=== PATIENT | female | born 1965 | race Caucasian/White ===

== ENCOUNTER → 2016-08-13 | Outpatient (CLI) | payer OTHER ==
[2016-08-13 14:37] LABS: EKG EKG PERFORMED
--- NOTE | 2016-08-13 14:59 | XR ---
EXAMINATION TYPE: XR chest 2V DATE OF EXAM: 08/13/2016 COMPARISON: Chest x-ray June 22, 2013. HISTORY: Presurgical study. TECHNIQUE: Frontal and lateral views of the chest are obtained. FINDINGS: There is no focal air space opacity, pleural effusion, or pneumothorax seen. The cardiac silhouette size is within normal limits. The osseous structures are intact. IMPRESSION: No acute cardiopulmonary process. No significant change from prior.
[2016-08-13 15:09] LABS: CH 33.8; HCT 45.6 % (34.0-46.0); HDW 2.36; HGB 15.3 gm/dL (11.4-16.0); MCH 33.6 pg (25.0-35.0); MCHC 33.7 g/dL (31.0-37.0); MCV 99.7 fL (80.0-100.0); Mean Platelet Volume 7.4; RBC 4.57 m/uL (3.80-5.40); RDW 12.7 % (11.5-15.5); WBC 8.5 k/uL (3.8-10.6)
[2016-08-13 15:11] LABS: ALT 21 U/L (9-52); AST 17 U/L (14-36); Alkaline Phosphatase 81 U/L (38-126); Anion Gap 11 mmol/L; Blood Urea Nitrogen 20 mg/dL (7-17); Calcium 9.8 mg/dL (8.4-10.2); Carbon Dioxide 23 mmol/L (22-30); Chloride 108 mmol/L (98-107); Glucose 81 mg/dL (74-99); Non-African American GFR(MDRD) 59 (>60 ml/min/1.73 sqM); Potassium 4.5 mmol/L (3.5-5.1); Sodium 142 mmol/L (137-145); Total Bilirubin 0.5 mg/dL (0.2-1.3); Total Protein 7.6 g/dL (6.3-8.2)
[2016-08-13 15:12] LABS: Partial Thromboplastin Time 22.1 sec (22.0-30.0)
== END | disposition home or self-care (01) ==
LOC: LABWHC1 14:19
PROVIDERS: ATTEND Neurological Surgery
DX: Z01.810 Encounter for preprocedural cardiovascular examination (principal); Z01.812 Encounter for preprocedural laboratory examination; S13.1 Subluxation and dislocation of cervical vertebrae
CPT/HCPCS: 36415; 71020; 80053; 85027; 85610; 85730; 93005

== ENCOUNTER → 2016-11-07 | Outpatient (CLI) | payer OTHER | END | disposition home or self-care (01) | LOC: RADMRIMAIN 14:58 | PROVIDERS: ATTEND Neurological Surgery | DX: Z53.9 Procedure and treatment not carried out, unspecified reason (principal) ==

== ENCOUNTER 2017-08-06 14:32 | Observation (INO) | payer OTHER ==
[2017-08-06] MEDS ORDERED: SODIUM CHLORIDE 0.9% 1,000 ML IV ONE (15:00)
--- NOTE | 2017-08-06 15:09 | ED ---
Chest Pain HPI - General Chief Complaint: Chest Pain Stated Complaint: CHEST PRESSURE, BLURRY VISION, DIZZINESS Time Seen by Provider: 08/06/17 14:50 Source: patient Mode of arrival: wheelchair Limitations: no limitations - History of Present Illness Initial Comments: This is a 52-year-old female who presents emergency department for mostly complaints of chest pressure. She states it started around 11 AM she states that she also has some associated blurred vision and some left arm tingling and numbness. She states that she also feels like she's got some weakness in the left upper extremity. Denies any difficult he was speech or swallowing. No lower Chevys swelling. She states that she recently got bit by one of her chickens and presented to an urgent care who put her on Levaquin for cellulitis. She states that initially she seemed like she was improving however then woke up this morning and noticed more swelling and redness in her left lower extremity. She was concerned that infection might be causing her discomfort. She does have a history of anxiety however states that she does not typically get the symptoms with her anxiety. She also has history of TIA. She denies any cough or shortness of breath. No abdominal pain. No nausea, vomiting, or diarrhea. No other acute complaints. - Related Data Home Medications Medication Instructions Recorded Confirmed ARIPiprazole [Abilify] 5 mg PO DAILY 08/06/17 08/06/17 Albuterol Inhaler [Ventolin Hfa 2 puff INHALATION RT-Q4H PRN 08/06/17 08/06/17 Inhaler] Aspirin EC [Ecotrin Low Dose] 81 mg PO HS 08/06/17 08/06/17 Atorvastatin [Lipitor] 40 mg PO 08/06/17 08/06/17 DULoxetine HCL [Cymbalta] 30 mg PO DAILY 08/06/17 08/06/17 Divalproex [Depakote] 1,000 mg PO QAM 08/06/17 08/06/17 Divalproex [Depakote] 500 mg PO HS 08/06/17 08/06/17 Hydrochlorothiazide 12.5 mg PO 08/06/17 08/06/17 Hydrocodone/Acetaminophen [[place] 1 tab PO Q6H PRN 08/06/17 08/06/17 10-325] Levofloxacin [Levaquin] 500 mg PO DAILY 08/06/17 08/06/17 Lisinopril 40 mg PO DAILY 08/06/17 08/06/17 Loratadine [Claritin] 10 mg PO DAILY 08/06/17 08/06/17 Meloxicam 15 mg PO DAILY 08/06/17 08/06/17 Naloxone HCl [Narcan] 1 spray NASAL ONCE PRN 08/06/17 08/06/17 Pregabalin [Lyrica] 75 mg PO BID 08/06/17 08/06/17 Ranitidine HCl 150 mg PO DAILY 08/06/17 08/06/17 Varenicline Tartrate [Chantix 1 mg PO BID 08/06/17 08/06/17 Continuing Pack] amLODIPine BESYLATE [Norvasc] 10 mg PO HS 08/06/17 08/06/17 buPROPion XL [Wellbutrin Xl] 150 mg PO DAILY 08/06/17 08/06/17 rOPINIRole HCL [Requip] 4 mg PO HS 08/06/17 08/06/17 Allergies Allergy/AdvReac Type Severity Reaction Status Date / Time codeine Allergy Unknown Verified 08/06/17 15:30 Review of Systems ROS Statement: Those systems with pertinent positive or pertinent negative responses have been documented in the HPI. ROS Other: All systems not noted in ROS Statement are negative. EKG Findings - EKG Comments: EKG Findings:: EKG showing normal sinus rhythm with a rate of 80. There is no abnormal ST segment changes or T-wave inversions. QTC is 445. Other intervals are normal. No ectopy. Past Medical History Past Medical History: Hypertension Additional Past Medical History / Comment(s): PKD History of Any Multi-Drug Resistant Organisms: None Reported Past Surgical History: Section, Orthopedic Surgery Past Psychological History: Bipolar, Depression Smoking Status: Current every day smoker Past Alcohol Use History: Occasional Past Drug Use History: None Reported General Exam - General Exam Comments Initial Comments: Constitutional: Awake alert Appears comfortable, appears anxious Head: Normocephalic atraumatic Eyes: no conjunctival injection No scleral icterus EOMI, pupils 4 mm reactive bilaterally Neck: No JVD Supple Heart: Regular rate rhythm normal S1-S2 no murmurs Lungs: Clear to auscultation bilaterally No wheezing No rales Abdomen: Soft nondistended nontender Extremities: Non edematous DP pulses intact Radial pulses intact Neuro: A&Ox3, cranial nerves II through XII are grossly intact, 5-5 strength in upper and lower extremities bilaterally, the patient is able to hold up both of her arms for 10 seconds however does state that she feels weakness in the left arm. Question effort on examination, able hold of bilateral lower extremities for 5 seconds, sensation intact to light touch, good senior integration architect strength and flexion and extension of upper extremity bilaterally No focal neurologic deficits Psych: Appropriate mood and affect Limitations: no limitations Course Vital Signs 08/06/17 08/06/17 08/06/17 14:42 15:00 16:45 Temperature 97.7 F Pulse Rate 91 84 89 Respiratory 16 20 20 Rate Blood Pressure 93/62 105/56 96/54 O2 Sat by Pulse 96 96 99 Oximetry - Reevaluation(s) Reevaluation #1: 08/06/17 16:22 Patient reevaluated and states that the weakness and numbness and chest pressure resolved at this time. She states that it keeps coming and going however. Awaiting the rest of her lab results. Chest Pain MDM - MDM This is a 52-year-old female who came to the emergency department for multiple complaints. Her main complaint was chest pressure that radiated into her left arm. She also has some associated left arm numbness, [place], and weakness. This seemed to happen intermittently throughout the day. Chest pain resolved while in the emergency department spontaneously. EKG and troponin were negative. No focal neurologic findings on examination CT of the head was negative. The patient does have persistent swelling in her left lower extremity regardless of being on Levaquin last few days. She was started on vancomycin. Doppler is negative. I like to admit her for further workup of her chest pain and also for cellulitis in her left lower extremity. Dr. Grant except see admission. Disposition Clinical Impression: EFRA (acute kidney injury), Chest pain, Cellulitis, Numbness Disposition: ADMITTED IP TO THIS HOSP Condition: Stable
[2017-08-06 15:29] LABS: Basophils % (A) 0 %; Eosinophils # (A) 0.2 k/uL (0-0.7); Eosinophils % (A) 2 %; HCT 40.3 % (34.0-46.0); HGB 13.6 gm/dL (11.4-16.0); Lymphocytes # (A) 2.7 k/uL (1.0-4.8); Lymphocytes % (A) 24 %; MCH 31.9 pg (25.0-35.0); MCHC 33.7 g/dL (31.0-37.0); MCV 94.8 fL (80.0-100.0); Mean Platelet Volume 7.1; Monocytes # (A) 0.7 k/uL (0-1.0); Monocytes % (A) 7 %; Neutrophils # (A) 7.6 k/uL (1.3-7.7); Neutrophils % (A) 67 %; Platelet Count 240 k/uL (150-450); RBC 4.25 m/uL (3.80-5.40); RDW 13.2 % (11.5-15.5); WBC 11.4 k/uL (3.8-10.6)
[2017-08-06 15:40] LABS: Albumin 4.2 g/dL (3.5-5.0); Calcium 9.6 mg/dL (8.4-10.2); Magnesium 1.9 mg/dL (1.6-2.3); Potassium 4.1 mmol/L (3.5-5.1); Total Bilirubin 0.7 mg/dL (0.2-1.3); Total Protein 6.9 g/dL (6.3-8.2)
[2017-08-06 15:50] LABS: Partial Thromboplastin Time 21.9 sec (22.0-30.0); Prothrombin Time 10.1 sec (9.0-12.0)
--- NOTE | 2017-08-06 16:06 | CT ---
EXAMINATION TYPE: CT brain wo con DATE OF EXAM: 08/06/2017 COMPARISON: 12/27/2012 HISTORY: Dizziness, weakness and blurred vision. CT DLP: [address] of the brain was performed. The ventricles, basal cisterns and sulci overlying the cerebral convexities demonstrate mild enlargem ent. There is no evidence for intracranial hemorrhage or sulcal effacement. There is decreased attenuation about the periventricular white matter and deep white matter of both c erebral hemispheres, compatible with chronic small vessel ischemia. Differential diagnosis does inclu de demyelination. No mass effects are seen.No midline shift. Osseous calvarium is intact. If symptoms persist consider MRI. IMPRESSION: 1. Age related atrophic and chronic small vessel ischemic change without acute intracranial process s een at this time.
[2017-08-06 16:07] LABS: Troponin I <0.012 ng/mL (0.000-0.034)
[2017-08-06] MEDS ORDERED: ASPIRIN 81 MG PO STA (16:18)
[2017-08-06] MEDS ORDERED: HYDROcodone/APAP 7.5-325MG 1 EACH TAB PO ONE (16:47)
[2017-08-06] MEDS ORDERED: VANCOMYCIN IV PER PHARMACY 1 EACH MISC MISCELLANE PRN (16:48)
--- NOTE | 2017-08-06 16:56 | XR ---
EXAMINATION TYPE: XR chest 2V DATE OF EXAM: 08/06/2017 COMPARISON: 08/13/2016 HISTORY: Chest pain TECHNIQUE: Frontal and lateral views of the chest are obtained. FINDINGS: Heart and mediastinum are normal. Lungs are clear. Diaphragm is normal. There are chest le ads. IMPRESSION: Normal chest. No change.
[2017-08-06] MEDS ORDERED: VANCOMYCIN 1,750 MG in SODIUM CHLORIDE 0.9% 250 ML IVPB ONE (17:15)
--- NOTE | 2017-08-06 17:24 | US ---
EXAMINATION TYPE: US venous doppler duplex LE LT DATE OF EXAM: 08/06/2017 5:15 PM COMPARISON: NONE CLINICAL HISTORY: swelling. Left leg pain and swelling x 1 day SIDE PERFORMED: Left TECHNIQUE: The lower extremity deep venous system is examined utilizing real time linear array sonog gracia with graded compression, doppler sonography and color-flow sonography. VESSELS IMAGED: External Iliac Vein (EIV) Common Femoral Vein Deep Femoral Vein Greater Saphenous Vein * Femoral Vein Popliteal Vein Small Saphenous Vein * Proximal Calf Veins (* superficial vessels) Left Leg: Appears negative for DVT IMPRESSION: Negative exam. No sign of deep venous thrombosis in the left leg.
[2017-08-06] MEDS ORDERED: ALBUTEROL NEBULIZED 2.5 MG/3 ML INHALATION PRN (17:30)
[2017-08-06] MEDS ORDERED: KETOROLAC 30 MG/ML 1 ML VIAL IVP STA (17:32)
[2017-08-06] MEDS: SODIUM CHLORIDE 0.9% 1,000 ML IV SCH (17:50)
[2017-08-06] MEDS ORDERED: HYDROCHLOROTHIAZIDE 12.5 MG CAP PO SCH (22:00)
[2017-08-06 22:20] LABS: Creatine Kinase 121 U/L (30-135)
[2017-08-06 22:33] LABS: Creatine Kinase MB 0.7 ng/mL (0.0-2.4); Troponin I <0.012 ng/mL (0.000-0.034)
[2017-08-06] MEDS: HYDROcodone/APAP 10-325MG 1 EACH TAB PO PRN (22:51)
[2017-08-06] MEDS: ATORVASTATIN 40 MG TAB PO SCH (22:52)
[2017-08-06] MEDS: PREGABALIN 75 MG CAP PO SCH (22:53)
[2017-08-06] MEDS: amLODIPine 10 MG TAB PO SCH (22:53)
[2017-08-06] MEDS: VARENICLINE 1 MG TAB PO SCH (22:53)
[2017-08-06] MEDS: DIVALPROEX 500 MG TABLET.DR PO SCH (22:53)
[2017-08-06] MEDS: rOPINIRole HCL 4 MG TABLET PO SCH (22:53)
[2017-08-07] MEDS: SODIUM CHLORIDE 0.9% 1,000 ML IV SCH ×2 (02:39→17:51)
[2017-08-07 03:52] LABS: Cholesterol 175 mg/dL (<200); HDL Cholesterol 40 mg/dL (40-60); LDL Cholesterol,Calculated 100 mg/dL (0-99); Triglycerides 177 mg/dL (<150)
[2017-08-07 04:00] LABS: Creatine Kinase 97 U/L (30-135)
[2017-08-07 04:13] LABS: Creatine Kinase MB 0.6 ng/mL (0.0-2.4); Troponin I <0.012 ng/mL (0.000-0.034)
[2017-08-07] MEDS: HYDROcodone/APAP 10-325MG 1 EACH TAB PO PRN ×3 (08:48→20:03)
[2017-08-07] MEDS ORDERED: VANCOMYCIN 1,500 MG in SODIUM CHLORIDE 0.9% 250 ML IVPB SCH (09:00)
[2017-08-07] MEDS ORDERED: ASPIRIN 325 MG TAB PO SCH (09:00)
[2017-08-07] MEDS ORDERED: MELOXICAM 7.5 MG TAB PO SCH (09:00)
[2017-08-07] MEDS ORDERED: LISINOPRIL 20 MG TAB PO SCH (09:00)
[2017-08-07] MEDS ORDERED: DOBUTamine DRIP for NUC MED 500 MG in DEXTROSE/WATER 1 250ML.BAG IV ONE (10:19)
[2017-08-07] MEDS ORDERED: ASPIRIN 81 MG PO SCH (11:02)
--- NOTE | 2017-08-07 11:08 | P.CRDCN ---
History of Present Illness History of present illness: Mrs. Rasheed is a pleasant 52-year-old female past medical history significant for hypertension, dyslipidemia, asthma and chronic nicotine dependence. She denies history of coronary artery disease and has never seen a harness maker for any reason. We've been asked to see her in consultation for symptoms of chest pain. She states yesterday while preparing for a garage sale at her home she started with a pressure in her chest in mid-sternal region that radiated to her left should, upper left scapular region and down the left arm. Associated with shortness of breath, dizziness, nausea and extreme diaphoresis. She denies associated palpitations or vomiting. Her symptoms were intermittent all day and seemed to be worse with activity and would improve with rest. She also has cellulitis to left lower extremity after a rooster scratch at home. She came to ED initally and was given a tetanus shot and a dose of IM antibiotics. She has had no further symptoms of chest pain since admission. Telemetry tracings have been unremarkable. EKG reveals sinus mechanism with no acute ST or T-wave abnormalities. Chest x-ray is negative for an acute cardiopulmonary process. Laboratory data reviewed, WBC 11.4, d-dimer 0.48, sodium 139, potassium 4.1, creatinine 1.74, GFR 34, magnesium 1.9, cardiac enzymes negative 3, LDL 100, HDL 40, triglycerides 1-77 and total cholesterol 75. Current cardiac medications include amlodipine 10 mg daily, lisinopril 40 mg daily, hydrochlorothiazide 12.5 mg daily, atorvastatin 40 mg daily and aspirin 81 mg daily. She also takes Requip, Wellbutrin, Chantix, ranitidine, Lyrica, meloxicam, Claritin, [place], Depakote, Cymbalta, Abilify and Ventolin. Review of Systems At the time of my exam: CONSTITUTIONAL: Denies fever. Denies chills. EYES: Denies blurred vision. Denies vision changes. Denies eye pain. EARS, NOSE, MOUTH & THROAT: Denies headache. Denies sore throat. Denies ear pain. CARDIOVASCULAR: Denies chest pain. Denies shortness of breath. Denies orthopnea. Denies PND. Denies palpitations. RESPIRATORY: Denies cough. GASTROINTESTINAL: Denies abdominal pain. Denies diarrhea. Denies constipation. Denies nausea. Denies vomiting. MUSCULOSKELETAL: Denies myalgias. INTEGUMENTARY: Denies pruitis. Denies rash. NEUROLOGIC: Denies numbness. Denies tingling. Denies weakness. PSYCHIATRIC: Denies anxiety. Denies depression. ENDOCRINE: Denies fatigue. Denies weight change. Denies polydipsia. Denies polyurina. GENITOURINARY: Denies burning, hematuria or urgency with micturation. HEMATOLOGIC: Denies history of anemia. Denies bleeding. Past Medical History Past Medical History: Asthma, Chest Pain / Angina, CVA/TIA, Hyperlipidemia, Hypertension, Rheumatoid Arthritis (RA) Additional Past Medical History / Comment(s): migraines,irreg heart beat- skipped beats,tia,seasonal allergies, past anemia took iron supplements, poly cystic ovaries,chronic back pain, vertigo,on depakote for bipolar depression . recently pt had skin on lower leg leg punctured by a chicken- was palced on ab for cellulitis History of Any Multi-Drug Resistant Organisms: None Reported Past Surgical History: Section, Orthopedic Surgery Additional Past Surgical History / Comment(s): x5 c-sections, rt knee arthrocopy , rt knee meniscus repair, lt knee tendone/ligament repair, cervical fusion Past Anesthesia/Blood Transfusion Reactions: No Reported Reaction Additional Past Anesthesia/Blood Transfusion Reaction / Comment(s): never recieved blood Smoking Status: Current every day smoker - Past Family History Mother Family Medical History: Rheumatoid Arthritis (RA) Additional Family Medical History / Comment(s): alcoholic- has since Father Additional Family Medical History / Comment(s): alcoholic Medications and Allergies Home Medications Medication Instructions Recorded Confirmed Type ARIPiprazole [Abilify] 5 mg PO DAILY 08/06/17 08/06/17 History Albuterol Inhaler [Ventolin Hfa 2 puff INHALATION RT-Q4H PRN 08/06/17 08/06/17 History Inhaler] Aspirin EC [Ecotrin Low Dose] 81 mg PO HS 08/06/17 08/06/17 History Atorvastatin [Lipitor] 40 mg PO HS 08/06/17 08/06/17 History DULoxetine HCL [Cymbalta] 30 mg PO DAILY 08/06/17 08/06/17 History Divalproex [Depakote] 1,000 mg PO QA 08/06/17 08/06/17 History Divalproex [Depakote] 500 mg PO HS 08/06/17 08/06/17 History Hydrochlorothiazide 12.5 mg PO HS 08/06/17 08/06/17 History Hydrocodone/Acetaminophen [[place] 1 tab PO Q6H PRN 08/06/17 08/06/17 History 10-325] Levofloxacin [Levaquin] 500 mg PO DAILY 08/06/17 08/06/17 History Lisinopril 40 mg PO DAILY 08/06/17 08/06/17 History Loratadine [Claritin] 10 mg PO DAILY 08/06/17 08/06/17 History Meloxicam 15 mg PO DAILY 08/06/17 08/06/17 History Naloxone HCl [Narcan] 1 spray NASAL ONCE PRN 08/06/17 08/06/17 History Pregabalin [Lyrica] 75 mg PO BID 08/06/17 08/06/17 History Ranitidine HCl 150 mg PO DAILY 08/06/17 08/06/17 History Varenicline Tartrate [Chantix 1 mg PO BID 08/06/17 08/06/17 History Continuing Pack] amLODIPine BESYLATE [Norvasc] 10 mg PO HS 08/06/17 08/06/17 History buPROPion XL [Wellbutrin Xl] 150 mg PO DAILY 08/06/17 08/06/17 History rOPINIRole HCL [Requip] 4 mg PO HS 08/06/17 08/06/17 History Allergies Allergy/AdvReac Type Severity Reaction Status Date / Time codeine Allergy Unknown Verified 08/06/17 22:39 Physical Exam Vitals: Vital Signs Temp Pulse Pulse Resp BP BP Pulse Ox 08/07/17 04:00 98.1 F 66 16 80/53 90 L 08/07/17 03:52 16 08/06/17 23:32 97.9 F 76 16 85/64 92 L 08/06/17 22:58 16 08/06/17 22:25 98.1 F 74 16 126/75 94 L 08/06/17 21:43 98.3 F 88 20 96/56 99 08/06/17 19:32 69 18 116/67 97 08/06/17 19:31 77 19 116/67 98 08/06/17 17:50 126 H 18 110/64 96 08/06/17 16:45 89 20 96/54 99 08/06/17 15:00 84 20 105/56 96 08/06/17 14:42 97.7 F 91 16 93/62 96 Intake and Output 08/06/17 08/07/17 08/07/17 22:59 06:59 14:59 Intake Total 600 Balance 600 Intake: IV 600 Sodium Chloride 0.9% 1, 600 000 ml @ 100 mls/hr IV . Q10H [facility] Rx#:[id number] Other: Voiding Method Toilet Toilet # Voids 2 Blood pressure 111/63 heart rate 64 afebrile maintaining oxygen saturation on room air GENERAL: This is a 52-year-old female in no apparent distress at the time of my examination. HEENT: Head is atraumatic, normocephalic. Pupils are equal, round. Sclerae anicteric. Conjunctivae are clear. Mucous membranes of the mouth are moist. Neck is supple. There is no jugular venous distention. No carotid bruit is heard. LUNGS: Clear to auscultation no wheezes, rales or rhonchi. No chest wall tenderness is noted on palpation or with deep breathing. Diminished bilaterally. HEART: Regular rate and rhythm without murmurs, rubs or gallops. S1 and S2 heard. ABDOMEN: Soft, nontender. Bowel sounds are heard. No organomegaly noted. EXTREMITIES: No calf tenderness noted. Left lower extremity edema, nonpitting. VASCULAR: Radial and dorsalis pedis pulses palpated, no evidence of clubbing. NEUROLOGIC: Patient is awake, alert and oriented x3. Results 08/06/17 15:15 08/06/17 15:15 Cardiac Enzymes 08/06/17 08/06/17 08/06/17 Range/Units 15:15 15:15 21:38 AST 20 (14-36) U/L CK-MB (CK-2) 1.0 0.7 (0.0-2.4) ng/mL Troponin I <0.012 <0.012 (0.000-0.034) ng/mL 08/07/17 Range/Units 03:23 AST (14-36) U/L CK-MB (CK-2) 0.6 (0.0-2.4) ng/mL Troponin I <0.012 (0.000-0.034) ng/mL Coagulation 08/06/17 Range/Units 15:15 PT 10.1 (9.0-12.0) sec APTT 21.9 L (22.0-30.0) sec Lipids 08/07/17 Range/Units 03:23 Triglycerides 177 H (<150) mg/dL Cholesterol 175 (<200) mg/dL HDL Cholesterol 40 (40-60) mg/dL CBC 08/06/17 Range/Units 15:15 WBC 11.4 H (3.8-10.6) k/uL RBC 4.25 (3.80-5.40) m/uL Hgb 13.6 (11.4-16.0) gm/dL Hct 40.3 (34.0-46.0) % Plt Count 240 (150-450) k/uL Comprehensive Metabolic Panel 08/06/17 Range/Units 15:15 Sodium 139 (137-145) mmol/L Potassium 4.1 (3.5-5.1) mmol/L Chloride 102 (98-107) mmol/L Carbon Dioxide 23 (22-30) mmol/L BUN 22 H (7-17) mg/dL Creatinine 1.74 H (0.52-1.04) mg/dL Glucose 74 (74-99) mg/dL Calcium 9.6 (8.4-10.2) mg/dL AST 20 (14-36) U/L ALT 27 (9-52) U/L Alkaline Phosphatase 75 (38-126) U/L Total Protein 6.9 (6.3-8.2) g/dL Albumin 4.2 (3.5-5.0) g/dL Current Medications Generic Name Dose Route Start Last Admin Trade Name Freq PRN Reason Stop Dose Admin Hydrocodone Bitart/Acetaminophen 1 each 08/06/17 17:30 08/06/17 22:51 [place] 10 PO 1 each Q6H PRN Administration Pain Albuterol Sulfate 2.5 mg 08/06/17 17:30 Ventolin Nebulized INHALATION RT-Q4H PRN Shortness Of Breath Amlodipine Besylate 10 mg 08/06/17 22:00 08/06/17 22:53 Norvasc PO 10 mg HS OBDULIO Administration Aripiprazole 5 mg 08/07/17 09:00 Abilify PO DAILY [facility] Aspirin 325 mg 08/07/17 09:00 Aspirin PO DAILY [facility] Atorvastatin Calcium 40 mg 08/06/17 22:00 08/06/17 22:52 Lipitor PO 40 mg HS OBDULIO Administration Bupropion HCl 150 mg 08/07/17 09:00 Wellbutrin Xl PO DAILY [facility] Divalproex Sodium 500 mg 08/06/17 22:00 08/06/17 22:53 Depakote PO 500 mg HS OBDULIO Administration Divalproex Sodium 1,000 mg 08/07/17 09:00 Depakote PO QAM [facility] Duloxetine HCl 30 mg 08/07/17 09:00 Cymbalta PO DAILY [facility] Famotidine 20 mg 08/07/17 09:00 Pepcid PO DAILY [facility] Hydrochlorothiazide 12.5 mg 08/07/17 09:00 Hydrodiuril PO DAILY [facility] Sodium Chloride 1,000 mls @ 100 mls/hr 08/06/17 17:30 08/07/17 02:39 Saline 0.9% IV Not Given .Q10H [facility] Vancomycin HCl 1,500 mg/ 250 mls @ 125 mls/hr 08/07/17 09:00 Sodium Chloride IVPB Q24H [facility] Lisinopril 40 mg 08/07/17 09:00 Zestril PO DAILY [facility] Loratadine 10 mg 08/07/17 09:00 Claritin PO DAILY [facility] Meloxicam 15 mg 08/07/17 09:00 Mobic PO DAILY [facility] Pregabalin 75 mg 08/06/17 22:00 08/06/17 22:53 Lyrica PO 75 mg BID [facility] Administration Ropinirole HCl 4 mg 08/06/17 22:00 08/06/17 22:53 Requip PO 4 mg HS [facility] Administration Varenicline 1 mg 08/06/17 22:00 08/06/17 22:53 Chantix PO 1 mg BID [facility] Administration Intake and Output 08/06/17 08/07/17 08/07/17 22:59 06:59 14:59 Intake Total 600 Balance 600 Intake: IV 600 Sodium Chloride 0.9% 1, 600 000 ml @ 100 mls/hr IV . Q10H [facility] Rx#:[id number] Other: Voiding Method Toilet Toilet # Voids 2 08/06/17 15:15 08/06/17 15:15 Assessment and Plan Assessment: ASSESSMENT 1. Chest pain, atypical. Acute coronary event has ruled out with no EKG evidence of ischemia and normal cardiac enzymes. 2. Hypertension 3. Dyslipidemia 4. Acute kidney injury 5. Cellulitis left lower extremity 6. Chronic nicotine dependence PLAN Obtain 2-D echocardiogram and Doppler study to assess cardiac structure and function. Perform dobutamine stress echocardiogram to assess for stress-induced cardiac ischemia. If this is normal she is stable from a cardiac perspective. If abnormal we will consider coronary angiography. D-dimer has been checked tenderness is negative. Change aspirin to 81 mg daily. Thank you kindly for this consultation. Nurse Practitioner note has been reviewed, I agree with a documented findings and plan of care. Patient was seen and examined.
--- NOTE | 2017-08-07 11:28 | ECHOF ---
Referral Reason:cp MEASUREMENTS -------- HEIGHT: 157.5 cm WEIGHT: 80.3 kg BP: 80/53 RVIDd: 2.6 cm (< 3.3) IVSd: 1.2 cm (0.6 - 1.1) LVIDd: 3.5 cm (3.9 - 5.3) LVPWd: 1.2 cm (0.6 - 1.1) IVSs: 1.6 cm LVIDs: 2.5 cm LVPWs: 1.4 cm LA Diam: 3.1 cm (2.7 - 3.8) LAESV Index (A-L): 27.80 ml/m Ao Diam: 3.0 cm (2.0 - 3.7) AV Cusp: 2.1 cm (1.5 - 2.6) MV EXCURSION: 14.382 mm (> 18.000) MV EF SLOPE: 70 mm/s (70 - 150) EPSS: 0.1 cm MV E Thony: 1.27 m/s MV DecT: 262 ms MV A Thony: 0.95 m/s MV E/A Ratio: 1.33 RAP: 5.00 mmHg RVSP: 26.84 mmHg FINDINGS -------- Sinus rhythm. This was a technically adequate study. The left ventricular size is normal. There is borderline concentric left ventricular hypertrophy. Overall left ventricular systolic function is normal with, an EF between 55 - 60 %. The right ventricle is normal in size. Normal LA size by volume 22+/-6 ml/m2. The right atrium is normal in size. The aortic valve is trileaflet and appears structurally normal. The mitral valve is normal. Mild tricuspid regurgitation present. Right ventricular systolic pressure is normal at < 35 mmHg. Trace/mild (physiologic) pulmonic regurgitation. The aortic root is dilated measuring 3.0cm. Normal inferior vena cava with normal inspiratory collapse consistent with estimated right atrial pre ssure of 5 mmHg. There is no pericardial effusion. CONCLUSIONS -------- 1. Sinus rhythm. 2. This was a technically adequate study. 3. The left ventricular size is normal. 4. There is borderline concentric left ventricular hypertrophy. 5. Overall left ventricular systolic function is normal with, an EF between 55 - 60 %. 6. The right ventricle is normal in size. 7. Normal LA size by volume 22+/-6 ml/m2. 8. The right atrium is normal in size. 9. The aortic valve is trileaflet and appears structurally normal. 10. The mitral valve is normal. 11. Mild tricuspid regurgitation present. 12. Right ventricular systolic pressure is normal at < 35 mmHg. 13. Trace/mild (physiologic) pulmonic regurgitation. 14. The aortic root is dilated measuring 3.0cm. 15. Normal inferior vena cava with normal inspiratory collapse consistent with estimated right atrial pressure of 5 mmHg. 16. There is no pericardial effusion. [place] DISPATCHER: Mohini Baldwin RDCS
[2017-08-07] MEDS ORDERED: ATROPINE SULFATE 0.1 MG/ML 10ML SYRINGE ONE (12:10)
[2017-08-07] MEDS ORDERED: TERBUTALINE FOR EXTRAVASATION 1 MG/ML VIAL SQ STA (12:16)
[2017-08-07] MEDS ORDERED: METOPROLOL TARTRATE 5 MG/5 ML VIAL IVP ONE (12:18)
[2017-08-07] MEDS: LORATADINE 10 MG TAB PO SCH (12:40)
[2017-08-07] MEDS: DULoxetine HCL 30 MG CAPSULE.DR PO SCH (12:40)
[2017-08-07] MEDS: DIVALPROEX 500 MG TABLET.DR PO SCH ×2 (12:40→20:01)
[2017-08-07] MEDS: HYDROCHLOROTHIAZIDE 12.5 MG CAP PO SCH (12:40)
[2017-08-07] MEDS: VARENICLINE 1 MG TAB PO SCH ×2 (12:40→20:01)
[2017-08-07] MEDS: buPROPion XL 150 MG TAB.ER.24H PO SCH (12:40)
[2017-08-07] MEDS: ARIPiprazole 5 MG TAB PO SCH (12:40)
[2017-08-07] MEDS: PREGABALIN 75 MG CAP PO SCH ×2 (12:40→20:01)
[2017-08-07] MEDS: FAMOTIDINE 20 MG TAB PO SCH (12:40)
[2017-08-07] MEDS ORDERED: TERBUTALINE 1 MG/ML VIAL SQ STA (14:05)
--- NOTE | 2017-08-07 16:36 | P.HPIM ---
History of Present Illness This is a pleasant 52 years old female with past medical history of asthma, CVA/ TIA, hyperlipidemia, hypertension, rheumatoid arthritis, migraine, polycystic ovary disease, chronic back pain, vertigo, bipolar disorder on Depakote, who presents because of chest pain which was started of 1 or 2 days duration, central radiating to the left shoulder, patient felt it like a brICk on the chest, was 9/10 in severity.BY The time I saw the patient she was lying in bed sleeping told me her chest pain was significantly better as now 5/10. Associated with nausea, no dyspnea, no change in urine or bowel habits, no fever Also the emergency room there was suspicion of left foot swelling and cellulitis as per patient and it was started on IV vancomycin and IV fluids already, however on the exam looks like very mild swelling over her left foods with small wound in the anterior lower leg, with dried scab, and mildly surrounding erythema and swelling . However I stopped her vancomycin and change it to clindamycin In the ED patient has negative chest x-ray, CT of the head was negative for acute process, venous Doppler of the left lower extremity is negative for DVT Review of Systems CONSTITUTIONAL: No fever, no malaise, no fatigue. HEENT: No recent visual problems or hearing problems. Denied any sore throat. CARDIOVASCULAR: No orthopnea, PND, no palpitations, no syncope. PULMONARY: No shortness of breath, no cough, no hemoptysis. GASTROINTESTINAL: No diarrhea, no nausea, no vomiting, no abdominal pain. Normoactive bowel sounds. NEUROLOGICAL: No headaches, no weakness, no numbness. HEMATOLOGICAL: Denies any bleeding or petechiae. GENITOURINARY: Denies any burning micturition, frequency, or urgency. MUSCULOSKELETAL/RHEUMATOLOGICAL: Denies any joint pain, swelling, or any muscle pain. ENDOCRINE: Denies any polyuria or polydipsia. Past Medical History Past Medical History: Asthma, Chest Pain / Angina, CVA/TIA, Hyperlipidemia, Hypertension, Rheumatoid Arthritis (RA) Additional Past Medical History / Comment(s): migraines,irreg heart beat- skipped beats,tia,seasonal allergies, past anemia took iron supplements, poly cystic ovaries,chronic back pain, vertigo,on depakote for bipolar depression . recently pt had skin on lower leg leg punctured by a chicken- was palced on ab for cellulitis History of Any Multi-Drug Resistant Organisms: None Reported Past Surgical History: Section, Orthopedic Surgery Additional Past Surgical History / Comment(s): x5 c-sections, rt knee arthrocopy , rt knee meniscus repair, lt knee tendone/ligament repair, cervical fusion Past Anesthesia/Blood Transfusion Reactions: No Reported Reaction Additional Past Anesthesia/Blood Transfusion Reaction / Comment(s): never recieved blood Smoking Status: Current every day smoker - Past Family History Mother Family Medical History: Rheumatoid Arthritis (RA) Additional Family Medical History / Comment(s): alcoholic- has since Father Additional Family Medical History / Comment(s): alcoholic Medications and Allergies Home Medications Medication Instructions Recorded Confirmed Type ARIPiprazole [Abilify] 5 mg PO DAILY 08/06/17 08/06/17 History Albuterol Inhaler [Ventolin Hfa 2 puff INHALATION RT-Q4H PRN 08/06/17 08/06/17 History Inhaler] Aspirin EC [Ecotrin Low Dose] 81 mg PO HS 08/06/17 08/06/17 History Atorvastatin [Lipitor] 40 mg PO HS 08/06/17 08/06/17 History DULoxetine HCL [Cymbalta] 30 mg PO DAILY 08/06/17 08/06/17 History Divalproex [Depakote] 1,000 mg PO QA 08/06/17 08/06/17 History Divalproex [Depakote] 500 mg PO HS 08/06/17 08/06/17 History Hydrochlorothiazide 12.5 mg PO HS 08/06/17 08/06/17 History Hydrocodone/Acetaminophen [[place] 1 tab PO Q6H PRN 08/06/17 08/06/17 History 10-325] Levofloxacin [Levaquin] 500 mg PO DAILY 08/06/17 08/06/17 History Lisinopril 40 mg PO DAILY 08/06/17 08/06/17 History Loratadine [Claritin] 10 mg PO DAILY 08/06/17 08/06/17 History Meloxicam 15 mg PO DAILY 08/06/17 08/06/17 History Naloxone HCl [Narcan] 1 spray NASAL ONCE PRN 08/06/17 08/06/17 History Pregabalin [Lyrica] 75 mg PO BID 08/06/17 08/06/17 History Ranitidine HCl 150 mg PO DAILY 08/06/17 08/06/17 History Varenicline Tartrate [Chantix 1 mg PO BID 08/06/17 08/06/17 History Continuing Pack] amLODIPine BESYLATE [Norvasc] 10 mg PO HS 08/06/17 08/06/17 History buPROPion XL [Wellbutrin Xl] 150 mg PO DAILY 08/06/17 08/06/17 History rOPINIRole HCL [Requip] 4 mg PO HS 08/06/17 08/06/17 History Allergies Allergy/AdvReac Type Severity Reaction Status Date / Time codeine Allergy Unknown Verified 08/06/17 22:39 Physical Exam Vitals: Vital Signs Temp Pulse Pulse Resp BP BP BP 08/07/17 15:34 98.4 F 87 18 93/52 08/07/17 12:35 86 18 103/77 08/07/17 07:45 97.9 F 64 18 111/63 08/07/17 04:00 98.1 F 66 16 80/53 08/07/17 03:52 16 08/06/17 23:32 97.9 F 76 16 85/64 08/06/17 22:58 16 08/06/17 22:25 98.1 F 74 16 126/75 08/06/17 21:43 98.3 F 88 20 96/56 08/06/17 19:32 69 18 116/67 08/06/17 19:31 77 19 116/67 08/06/17 17:50 126 H 18 110/64 08/06/17 16:45 89 20 96/54 Pulse Ox 08/07/17 15:34 95 08/07/17 12:35 96 08/07/17 07:45 93 L 08/07/17 04:00 90 L 08/07/17 03:52 08/06/17 23:32 92 L 08/06/17 22:58 08/06/17 22:25 94 L 08/06/17 21:43 99 08/06/17 19:32 97 08/06/17 19:31 98 08/06/17 17:50 96 08/06/17 16:45 99 Intake and Output 08/07/17 08/07/17 08/07/17 06:59 14:59 22:59 Intake Total 600 400 Balance 600 400 Intake: IV 600 Sodium Chloride 0.9% 1, 600 000 ml @ 100 mls/hr IV . Q10H OBDULIO Rx#:[id number] Oral 400 Other: Voiding Method Toilet Toilet # Voids 2 1 Weight 80.286 kg GENERAL: The patient is alert and oriented x3, not in any acute distress. Well developed, well nourished. HEENT: Pupils are round and equally reacting to light. EOMI. No scleral icterus. No conjunctival pallor. Normocephalic, atraumatic. No pharyngeal erythema. No thyromegaly. CARDIOVASCULAR: S1 and S2 present. No murmurs, rubs, or gallops. PULMONARY: Chest is clear to auscultation, no wheezing or crackles. ABDOMEN: Soft, nontender, nondistended, normoactive bowel sounds. No palpable organomegaly. MUSCULOSKELETAL: No joint swelling or deformity. EXTREMITIES: No cyanosis, clubbing, or pedal edema. Left foot is showing mild swelling, there is dried scab on anterior lower leg wound with mildly surrounding erythema and swelling -That the fullness in her left arm probably from IV infiltration, no open wound. No erythema or discoloration, no ecchymosis or blistering NEUROLOGICAL: Gross neurological examination did not reveal any focal deficits. SKIN: No rashes. Results CBC & Chem 7: 08/06/17 15:15 08/06/17 15:15 Labs: Abnormal Lab Results - Last 24 Hours (Table) 08/07/17 Range/Units 03:23 Triglycerides 177 H (<150) mg/dL LDL Cholesterol, Calc 100 H (0-99) mg/dL Thrombosis Risk Factor Assmnt - Choose All That Apply Any of the Below Risk Factors Present?: Yes Each Factor Represents 1 point: Age 41-60 years, Obesity (BMI >25), Swollen legs (current) Other Risk Factors: No Other congenital or acquired thrombophilia - If yes, enter type in comment: No Thrombosis Risk Factor Assessment Total Risk Factor Score: 3 Thrombosis Risk Factor Assessment Level: Moderate Risk Assessment and Plan Plan: -Chest pain syndrome, patient was evaluated by cardiology and cleared for discharge after she had negative stress test. Her d-dimer was negative. Continue with aspirin 81 mg. Echo shows EF 55-60%, patient has 4 runs of V. tach, discussed with the staff to relay the information to the cardiology team -Possible cellulitis of the left lower extremity, patient was already started on vancomycin and as per patient it is significantly improved, discontinue vancomycin start on clindamycin -Infiltration of the IV line with dobutamine, continue with local measures and follow-up -Acute kidney injury with creatinine 1.7, was 1 on 07/2016, continue with IV hydration and follow-up creatinine level, DC NSAIDs, hold lisinopril for now and start her on Norvasc -Leukocytosis, no signs and symptoms of infection, could be reactive versus others. Monitor WBC. No need for antibiotics currently -Hypertension hold lisinopril and start Norvasc in view of her kidney injury -Hyperlipidemia continue with statin DVT prophylaxis is heparin GI prophylaxis Pepcid
[2017-08-07 17:05] LABS: Basophils % (A) 0 %; Eosinophils # (A) 0.2 k/uL (0-0.7); Eosinophils % (A) 2 %; HCT 36.7 % (34.0-46.0); HGB 12.1 gm/dL (11.4-16.0); Lymphocytes # (A) 3.1 k/uL (1.0-4.8); Lymphocytes % (A) 40 %; MCH 31.9 pg (25.0-35.0); MCHC 33.1 g/dL (31.0-37.0); MCV 96.2 fL (80.0-100.0); Mean Platelet Volume 7.1; Monocytes # (A) 0.4 k/uL (0-1.0); Monocytes % (A) 5 %; Neutrophils % (A) 51 %; Platelet Count 207 k/uL (150-450); RBC 3.81 m/uL (3.80-5.40); RDW 13.4 % (11.5-15.5); WBC 7.9 k/uL (3.8-10.6)
[2017-08-07 17:11] LABS: Anion Gap 14 mmol/L; Blood Urea Nitrogen 19 mg/dL (7-17); Calcium 8.5 mg/dL (8.4-10.2); Carbon Dioxide 23 mmol/L (22-30); Chloride 105 mmol/L (98-107); Glucose 95 mg/dL (74-99); Potassium 3.3 mmol/L (3.5-5.1); Sodium 142 mmol/L (137-145)
[2017-08-07] MEDS ORDERED: POTASSIUM CHLORIDE ER 20 MEQ TAB.ER PO STA (17:23)
[2017-08-07] MEDS: CLINDAMYCIN 600 MG in DEXTROSE 5% IN WATER 50 ML IVPB SCH ×2 (17:51)
[2017-08-07] MEDS: ATORVASTATIN 40 MG TAB PO SCH (20:01)
[2017-08-07] MEDS: rOPINIRole HCL 4 MG TABLET PO SCH (20:01)
[2017-08-07] MEDS: amLODIPine 10 MG TAB PO SCH (20:06)
[2017-08-08] MEDS: CLINDAMYCIN 600 MG in DEXTROSE 5% IN WATER 50 ML IVPB SCH ×4 (03:06→09:00)
[2017-08-08] MEDS: HYDROcodone/APAP 10-325MG 1 EACH TAB PO PRN (03:06)
[2017-08-08 06:39] LABS: Basophils % (A) 1 %; Eosinophils # (A) 0.2 k/uL (0-0.7); Eosinophils % (A) 4 %; HCT 35.9 % (34.0-46.0); HGB 11.9 gm/dL (11.4-16.0); Lymphocytes # (A) 3.6 k/uL (1.0-4.8); Lymphocytes % (A) 54 %; MCH 32.1 pg (25.0-35.0); MCHC 33.3 g/dL (31.0-37.0); MCV 96.4 fL (80.0-100.0); Mean Platelet Volume 6.9; Monocytes # (A) 0.3 k/uL (0-1.0); Monocytes % (A) 4 %; Neutrophils # (A) 2.4 k/uL (1.3-7.7); Neutrophils % (A) 36 %; Platelet Count 199 k/uL (150-450); RBC 3.72 m/uL (3.80-5.40); RDW 13.4 % (11.5-15.5); WBC 6.6 k/uL (3.8-10.6)
[2017-08-08 06:55] LABS: Anion Gap 9 mmol/L; Blood Urea Nitrogen 20 mg/dL (7-17); Calcium 8.4 mg/dL (8.4-10.2); Carbon Dioxide 24 mmol/L (22-30); Chloride 108 mmol/L (98-107); Glucose 92 mg/dL (74-99); Potassium 4.5 mmol/L (3.5-5.1); Sodium 141 mmol/L (137-145)
[2017-08-08] MEDS: PREGABALIN 75 MG CAP PO SCH (09:01)
[2017-08-08] MEDS: VARENICLINE 1 MG TAB PO SCH (09:01)
[2017-08-08] MEDS: LORATADINE 10 MG TAB PO SCH (09:01)
[2017-08-08] MEDS: ARIPiprazole 5 MG TAB PO SCH (09:01)
[2017-08-08] MEDS: buPROPion XL 150 MG TAB.ER.24H PO SCH (09:01)
[2017-08-08] MEDS: DULoxetine HCL 30 MG CAPSULE.DR PO SCH (09:01)
[2017-08-08] MEDS: FAMOTIDINE 20 MG TAB PO SCH (09:01)
[2017-08-08] MEDS: DIVALPROEX 500 MG TABLET.DR PO SCH (09:02)
[2017-08-08 09:18] VITALS: RESP 18
--- NOTE | 2017-08-08 09:28 | EST ---
EXERCISE STRESS DATE OF SERVICE: August 06, 2017 AGE: 52 SEX: Female HT: 5'2" WT: 177 PROTOCOL: Dobutamine Stress Echo STAGE: IV DURATION OF EXERCISE: 12:20 minutes HEART RATE REST: 74 BLOOD PRESSURE REST: 119/62 MAXIMUM HEART RATE ACHIEVED: 149. MAXIMUM BLOOD PRESSURE: 120/43 85% MPHR: 144 100% MPHR: 169 METS: INDICATIONS: Chest pain. CLINICAL INFORMATION: Chest discomfort. STRESS DATA: Pretesting physical examination showed a heart rate of 74, pressure is 119/62 mmHg. Baseline EKG showed sinus mechanism. Dobutamine infusion at a dose of 10 mcg/kg per minute was initiated and increased to 40 mics per minute per protocol. With dobutamine the patient achieved a max heart rate of 149 which is about 88% of maximum predicted heart rate. Maximum blood pressure was 120/45 mmHg. Clinically, the patient developed chest discomfort during dobutamine infusion. The EKG showed about [address]- segment depression as well. ECHOCARDIOGRAM IMAGES: On echocardiogram images from parasternal long axis view, parasternal short axis view, apical 4 chamber and apical 2 chamber view were obtained as a baseline images, at low dose dobutamine infusion, at peak heart rate, as well as on recovery and the echocardiogram images revealed no evidence of wall motion abnormalities concerning for ischemia. CONCLUSION: 1. Mild EKG changes in response to dobutamine at the peak heart rate. 2. Chest discomfort in response to dobutamine as well. 3. No evidence of any wall motion abnormalities by echocardiogram in response to dobutamine. MMODL / IJN: [id number] /
[2017-08-08] MEDS ORDERED: METOPROLOL SUCCINATE (ER) 25 MG TAB.ER.24H PO SCH (09:30)
--- NOTE | 2017-08-08 09:49 | PN ---
PROGRESS NOTE 52-year-old lady is admitted to hospital with chest pain and ruled out for myocardial infarction. She was seen by my associate, Dr. Nakia Terrazas yesterday and underwent a dobutamine echo. We are told that her dobutamine echo was negative. I do not have the results with me. Echocardiogram shows normal LV function. She apparently had the dobutamine has extravasated yesterday, but that area had also improved. The patient had a 4-beat run of nonsustained VT, but had remained stable since. She is currently on statins, aspirin, Norvasc, HydroDIURIL, I will add a small dose of Toprol-XL to her and stop the Norvasc given the low blood pressure. I will ambulate her and if she is feeling well, we may be able to discharge her home. MMFRANCESL / IJN: [id number] /
[2017-08-08] MEDS: HYDROCHLOROTHIAZIDE 12.5 MG CAP PO SCH (12:03)
[2017-08-08 12:06] VITALS: BP 96/55; PULSE 82; TEMP 98.6
--- NOTE | 2017-08-08 12:27 | P.DS ---
Providers Date of admission: 08/06/17 17:28 Attending physician: Dot Grant Consults: 08/06/17 17:28 Consult Physician Urgent Consulting Provider: [facility] Consult Reason/Comments: Chest Pain Do you want consulting provider notified?: Yes [facility] care physician[facility] Course: Ms. Rasheed is a pleasant 52 years old female with past medical history of asthma , CVA/TIA, hyperlipidemia, hypertension, rheumatoid arthritis, migraine, polycystic ovary disease, chronic back pain, vertigo, bipolar disorder on Depakote, who presents because of chest pain which was started of 1 or 2 days duration, central radiating to the left shoulder, patient felt it like a brick on the chest, was 9/10 in severity.Not associated with nausea, no dyspnea, no change in urine or bowel habits, no fever Also the emergency room there was suspicion of left foot swelling and cellulitis as per patient and it was started on IV vancomycin and IV fluids already, however on the exam looked very mild swelling over her left foods with small wound in the anterior lower leg, with dried scab, and mildly surrounding erythema and swelling . So stopped her vancomycin and change it to clindamycin yesterday. In the ED patient has negative chest x-ray, CT of the head was negative for acute process, venous Doppler of the left lower extremity is negative for DVT. Patient had a dobutamine stress echo done yesterday that was negative. EF was within normal limits. But she had the dobutamine that was extravasated in her left arm, but improved today. She has been cleared by cardiology services to be discharged home. Patient's blood pressure has been running low, she was not given any of her blood pressure medications. But the patient is clinically stable. She does not have any symptoms of dizziness. Orthostatics have been negative. At the time of discharge it was discussed in detail with the patient that I'm holding all her blood pressure medications for now. She has to follow with her PCP in 2 -3 days. If the patient cannot get an appointment she is advised to check her blood pressure at the nearby pharmacy and if it is consistently above 140/ 90 advised to be restarted on her home blood pressure medications. Patient has cellulitis of her left lower extremity due to a rooster lopez and was started on IV vancomycin that was changed to clindamycin yesterday. Today the area of cellulitis looks clean. No erythema, swelling or redness. She has a well-formed scab over that area. Patient is being discharged home on clindamycin for 4 more days. Also discussed the side effect of diarrhea with clindamycin and if she has any diarrhea that continues and is severe to to seek immediate medical attention. DISCHARGE DIAGNOSIS -Chest pain syndrome, patient was evaluated by cardiology and cleared for discharge after she had negative stress test. Her d-dimer was negative. Echo shows EF 55-60%. -Possible cellulitis of the left lower extremity, patient was already started on vancomycin and as per patient it is significantly improved, discontinue vancomycin being discharged on clindamycin -Infiltration of the IV line with dobutamine, continue with local measures and follow-up -Acute kidney injury with creatinine 1.7- today creatinine is 0.8 at baseline -Hypotension - we will hold off all blood pressure medications and advised follow-up -Hyperlipidemia continue with statin more than 40 minutes spent towards the discharge of the patient . Patient Condition at Discharge: Stable Plan - Discharge Summary Discharge Rx Participant: Yes New Discharge Prescriptions: New Clindamycin HCl [Cleocin] 300 mg PO Q8H 4 Days #12 cap Continue Albuterol Inhaler [Ventolin Hfa Inhaler] 2 puff INHALATION RT-Q4H PRN PRN Reason: Shortness Of Breath ARIPiprazole [Abilify] 5 mg PO DAILY Aspirin EC [Ecotrin Low Dose] 81 mg PO HS Atorvastatin [Lipitor] 40 mg PO HS buPROPion XL [Wellbutrin XL] 150 mg PO DAILY Divalproex [Depakote] 500 mg PO HS Divalproex [Depakote] 1,000 mg PO QAM DULoxetine HCL [Cymbalta] 30 mg PO DAILY Hydrochlorothiazide 12.5 mg PO HS Hydrocodone/Acetaminophen [[place] 10-325] 1 tab PO Q6H PRN PRN Reason: Pain Loratadine [Claritin] 10 mg PO DAILY Meloxicam 15 mg PO DAILY Naloxone HCl [Narcan] 1 spray NASAL ONCE PRN PRN Reason: OVERDOSE Pregabalin [Lyrica] 75 mg PO BID Ranitidine HCl 150 mg PO DAILY rOPINIRole HCL [Requip] 4 mg PO HS Varenicline Tartrate [Chantix Continuing Pack] 1 mg PO BID Discontinued amLODIPine BESYLATE [Norvasc] 10 mg PO HS Levofloxacin [Levaquin] 500 mg PO DAILY Lisinopril 40 mg PO DAILY Discharge Medication List ARIPiprazole [Abilify] 5 mg PO DAILY 08/06/17 [History] Albuterol Inhaler [Ventolin Hfa Inhaler] 2 puff INHALATION RT-Q4H PRN 08/06/17 [ History] Aspirin EC [Ecotrin Low Dose] 81 mg PO HS 08/06/17 [History] Atorvastatin [Lipitor] 40 mg PO HS 08/06/17 [History] DULoxetine HCL [Cymbalta] 30 mg PO DAILY 08/06/17 [History] Divalproex [Depakote] 1,000 mg PO QAM 08/06/17 [History] Divalproex [Depakote] 500 mg PO HS 08/06/17 [History] Hydrochlorothiazide 12.5 mg PO HS 08/06/17 [History] Hydrocodone/Acetaminophen [[place] 10-325] 1 tab PO Q6H PRN 08/06/17 [History] Loratadine [Claritin] 10 mg PO DAILY 08/06/17 [History] Meloxicam 15 mg PO DAILY 08/06/17 [History] Naloxone HCl [Narcan] 1 spray NASAL ONCE PRN 08/06/17 [History] Pregabalin [Lyrica] 75 mg PO BID 08/06/17 [History] Ranitidine HCl 150 mg PO DAILY 08/06/17 [History] Varenicline Tartrate [Chantix Continuing Pack] 1 mg PO BID 08/06/17 [History] buPROPion XL [Wellbutrin XL] 150 mg PO DAILY 08/06/17 [History] rOPINIRole HCL [Requip] 4 mg PO HS 08/06/17 [History] Clindamycin HCl [Cleocin] 300 mg PO Q8H 4 Days #12 cap 08/08/17 [Rx] Discharge Disposition: HOME SELF-CARE
== END 2017-08-08 12:41 | disposition home or self-care (01) ==
LOC: EC 14:32 → 3OBS 17:28
PROVIDERS: ADMIT Internal Medicine; ATTEND Internal Medicine
DX: R07.89 Other chest pain (principal); N17.9 Acute kidney failure, unspecified; L03.116 Cellulitis of left lower limb; R29.898 Other symptoms and signs involving the musculoskeletal system; T80.818A Extravasation of other vesicant agent, initial encounter; H53.8 Other visual disturbances; I95.9 Hypotension, unspecified; R61 Generalized hyperhidrosis; R20.0 Anesthesia of skin; R20.2 Paresthesia of skin; R53.1 Weakness; F41.9 Anxiety disorder, unspecified; I10 Essential (primary) hypertension; F31.9 Bipolar disorder, unspecified; F17.200 Nicotine dependence, unspecified, uncomplicated; J45.909 Unspecified asthma, uncomplicated; E78.5 Hyperlipidemia, unspecified; M06.9 Rheumatoid arthritis, unspecified; E28.2 Polycystic ovarian syndrome; R42 Dizziness and giddiness; M54.9 Dorsalgia, unspecified; G89.29 Other chronic pain; E66.9 Obesity, unspecified; Z68.32 Body mass index [BMI] 32.0-32.9, adult; G43.909 Migraine, unspecified, not intractable, without status migrainosus; D64.9 Anemia, unspecified; Z79.82 Long term (current) use of aspirin; Z79.899 Other long term (current) drug therapy; Z88.5 Allergy status to narcotic agent; Z86.73 Personal history of transient ischemic attack (TIA), and cerebral infarction without residual deficits; Z81.1 Family history of alcohol abuse and dependence; Z82.61 Family history of arthritis
CPT/HCPCS: 96366 ×4; 96361 ×3; 96365 ×2; 96375 ×2; 99285 ×2; 96367; 96372; 36415; 93005; 93306; 93351; 85379; 80061; 80053; 80048 ×2; 82550 ×2; 82553 ×2; 83735; 84484 ×2; 85025 ×3; 85610; 85730; 87040; 71046; 93971; 70450; G0378 ×3; J3370 ×2; J1250; J3105; J0461; J1885

== ENCOUNTER 2019-11-03 10:26 | Emergency (ER) | payer MEDICARE, OTHER ==
[2019-11-03 10:45] VITALS: BP 123/80; PULSE 87; RESP 18; TEMP 98.3
[2019-11-03] MEDS ORDERED: HYDROcodone/APAP 10-325MG 1 EACH TAB PO ONE (10:57)
--- NOTE | 2019-11-03 11:03 | ED ---
Upper Extremity HPI - General Chief Complaint: Extremity Injury, Upper Stated Complaint: fall, knee/wrist/elbow injury Time Seen by Provider: 11/03/19 10:48 Source: patient, RN notes reviewed Mode of arrival: ambulatory Limitations: no limitations - History of Present Illness Initial Comments: This a 54-year-old female presents emergency Department chief complaint of fall. Patient states that she tripped over a screw in dog leash and the ground. Patient states she fell her left side she complains of left shoulder left elbow and left wrist pain. Patient states that she had no head injury or loss conscious denies any neck pain or any back pain. She does have an abrasion on her left knee but is very minimal. She is able to ambulate no difficulty. She denies any paresthesias denies any back pain no bowel bladder incontinence or retention. No difficulty ambulate in. - Related Data Home Medications Medication Instructions Recorded Confirmed ARIPiprazole [Abilify] 5 mg PO DAILY 08/06/17 08/06/17 Albuterol Inhaler (Mhu) [Ventolin 2 puff INHALATION RT-Q4H PRN 08/06/17 08/06/17 Hfa Inhaler (Mhu)] Aspirin EC [Ecotrin Low Dose] 81 mg PO HS 08/06/17 08/06/17 Atorvastatin [Lipitor] 40 mg PO HS 08/06/17 08/06/17 DULoxetine HCL [Cymbalta] 30 mg PO DAILY 08/06/17 08/06/17 Divalproex [Depakote] 1,000 mg PO QAM 08/06/17 08/06/17 Divalproex [Depakote] 500 mg PO HS 08/06/17 08/06/17 Hydrochlorothiazide 12.5 mg PO HS 08/06/17 08/06/17 [hydroCHLOROthiazide] Hydrocodone/Acetaminophen [[place] 1 tab PO Q6H PRN 08/06/17 08/06/17 10-325] Loratadine [Claritin] 10 mg PO DAILY 08/06/17 08/06/17 Meloxicam 15 mg PO DAILY 08/06/17 08/06/17 Naloxone HCl [Narcan] 1 spray NASAL ONCE PRN 08/06/17 08/06/17 Pregabalin [Lyrica] 75 mg PO BID 08/06/17 08/06/17 Ranitidine HCl 150 mg PO DAILY 08/06/17 08/06/17 Varenicline Tartrate [Chantix 1 mg PO BID 08/06/17 08/06/17 Continuing Pack] buPROPion XL [Wellbutrin XL] 150 mg PO DAILY 08/06/17 08/06/17 rOPINIRole HCL [Requip] 4 mg PO HS 08/06/17 08/06/17 Previous Rx's Medication Instructions Recorded clindamycin HCL [Cleocin] 300 mg PO Q8H 4 Days #12 cap 08/08/17 Allergies Allergy/AdvReac Type Severity Reaction Status Date / Time codeine Allergy Unknown Verified 11/03/19 10:45 Review of Systems ROS Statement: Those systems with pertinent positive or pertinent negative responses have been documented in the HPI. ROS Other: All systems not noted in ROS Statement are negative. Past Medical History Past Medical History: Asthma, Chest Pain / Angina, CVA/TIA, Fibromyalgia, Hyperlipidemia, Hypertension, Osteoarthritis (OA) Additional Past Medical History / Comment(s): migraines,irreg heart beat- skipped beats,tia,seasonal allergies, past anemia took iron supplements, poly cystic ovaries,chronic back pain, vertigo,on depakote for bipolar depression . recently pt had skin on lower leg leg punctured by a chicken- was palced on ab for cellulitis History of Any Multi-Drug Resistant Organisms: None Reported Past Surgical History: Section, Orthopedic Surgery Additional Past Surgical History / Comment(s): x5 c-sections, rt knee arthrocopy, rt knee meniscus repair, lt knee tendone/ligament repair, cervical fusion Past Anesthesia/Blood Transfusion Reactions: No Reported Reaction Additional Past Anesthesia/Blood Transfusion Reaction / Comment(s): never recieved blood Past Psychological History: Bipolar, Depression Smoking Status: Current every day smoker Past Alcohol Use History: Occasional Past Drug Use History: None Reported - Past Family History Mother Family Medical History: Rheumatoid Arthritis (RA) Additional Family Medical History / Comment(s): alcoholic- has since Father Additional Family Medical History / Comment(s): alcoholic General Exam Limitations: no limitations General appearance: alert, in no apparent distress Head exam: Present: atraumatic, normocephalic, normal inspection Eye exam: Present: normal appearance, PERRL, EOMI. Absent: scleral icterus, conjunctival injection, periorbital swelling ENT exam: Present: normal exam, normal oropharynx, mucous membranes moist Neck exam: Present: normal inspection, full ROM. Absent: tenderness, meningismus, lymphadenopathy Respiratory exam: Present: normal lung sounds bilaterally. Absent: respiratory distress, wheezes, rales, rhonchi, stridor Cardiovascular Exam: Present: regular rate, normal rhythm, normal heart sounds. Absent: systolic murmur, diastolic murmur, rubs, gallop, clicks Extremities exam: Present: other (Tenderness diffusely over the left shoulder, left elbow forearm and wrist there is no obvious deformity no abrasions or ecchymosis neurovascular intact) Back exam: Present: full ROM. Absent: tenderness, paraspinal tenderness, vertebral tenderness Neurological exam: Present: alert, oriented X3, CN II-XII intact, reflexes normal. Absent: motor sensory deficit Skin exam: Present: warm, dry, intact, normal color. Absent: rash Course Vital Signs 11/03/19 10:40 Temperature 98.3 F Pulse Rate 87 Respiratory 18 Rate Blood Pressure 123/80 O2 Sat by Pulse 97 Oximetry Medical Decision Making - Medical Decision Making X-rays are negative for acute fracture. Patient has a left shoulder, elbow sprain. Patient was placed in a sling will follow-up with orthopedics. Disposition Clinical Impression: Fall, Left shoulder strain Disposition: HOME SELF-CARE Condition: Stable Instructions (If sedation given, give patient instructions): Elbow Sprain (ED), Shoulder Sprain (ED) Additional Instructions: Please return to the Emergency Department if symptoms worsen or any other concerns. Is patient prescribed a controlled substance at d/c from ED?: No Referrals: Nonstaff,Physician [Primary Care Provider] - 1-2 days Time of Disposition: 12:01
--- NOTE | 2019-11-03 11:39 | XR ---
Left humerus and left forearm HISTORY: Trauma and pain 2 views of the left humerus and 2 views of the left forearm are submitted. Marked arthropathy changes are present in the left shoulder. Bone mineralization and alignment are ma intained. IMPRESSION: No fracture or dislocation.
== END 2019-11-03 12:14 | disposition home or self-care (01) ==
LOC: EC 10:26
DX: S46.912A Strain of unspecified muscle, fascia and tendon at shoulder and upper arm level, left arm, initial encounter (principal); S80.212A Abrasion, left knee, initial encounter; M25.532 Pain in left wrist; J45.909 Unspecified asthma, uncomplicated; E78.5 Hyperlipidemia, unspecified; F31.9 Bipolar disorder, unspecified; I10 Essential (primary) hypertension; M19.90 Unspecified osteoarthritis, unspecified site; M79.7 Fibromyalgia; I25.2 Old myocardial infarction; G89.29 Other chronic pain; M54.5 Low back pain; F17.200 Nicotine dependence, unspecified, uncomplicated; Z88.5 Allergy status to narcotic agent; Z79.1 Long term (current) use of non-steroidal anti-inflammatories (NSAID); Z79.82 Long term (current) use of aspirin; Z79.899 Other long term (current) drug therapy; Z86.73 Personal history of transient ischemic attack (TIA), and cerebral infarction without residual deficits; W01.0XXA Fall on same level from slipping, tripping and stumbling without subsequent striking against object, initial encounter; Y93.89 Activity, other specified; Y92.009 Unspecified place in unspecified non-institutional (private) residence as the place of occurrence of the external cause
CPT/HCPCS: 99283

== ENCOUNTER 2020-07-25 23:54 | Emergency (ER) | payer MEDICARE, OTHER ==
[2020-07-26 00:15] VITALS: BP 111/74; PULSE 70; RESP 18; TEMP 97.6
[2020-07-26] MEDS ORDERED: KETOROLAC 15 MG/ML 1 ML VIAL IM STA (00:28)
[2020-07-26] MEDS ORDERED: HYDROmorphone 1 MG/ML 1 ML SYRINGE IM STA (00:28)
[2020-07-26] MEDS ORDERED: predniSONE 20 MG TAB PO STA (00:28)
--- NOTE | 2020-07-26 00:31 | ED ---
Extremity Problem HPI - General Chief complaint: Extremity Problem,Nontraumatic Stated complaint: knee/leg/back pain Time Seen by Provider: 07/26/20 00:19 Source: patient, family Mode of arrival: wheelchair Limitations: no limitations - History of Present Illness Complaint: extremity pain Onset/Timin -: month(s) Location: bilateral lower extremity History of Same: Yes Quality: burning, aching Consistency: constant Improves with: nothing Worsens with: nothing Associated Symptoms: denies other symptoms - Related Data Home Medications Medication Instructions Recorded Confirmed ARIPiprazole [Abilify] 5 mg PO DAILY 08/06/17 08/06/17 Albuterol Inhaler (Mhu) [Ventolin 2 puff INHALATION RT-Q4H PRN 08/06/17 08/06/17 Hfa Inhaler (Mhu)] Aspirin EC [Ecotrin Low Dose] 81 mg PO HS 08/06/17 08/06/17 Atorvastatin [Lipitor] 40 mg PO HS 08/06/17 08/06/17 DULoxetine HCL [Cymbalta] 30 mg PO DAILY 08/06/17 08/06/17 Divalproex [Depakote] 1,000 mg PO QA 08/06/17 08/06/17 Divalproex [Depakote] 500 mg PO HS 08/06/17 08/06/17 Hydrochlorothiazide 12.5 mg PO HS 08/06/17 08/06/17 [hydroCHLOROthiazide] Hydrocodone/Acetaminophen [[place] 1 tab PO Q6H PRN 08/06/17 08/06/17 10-325] Loratadine [Claritin] 10 mg PO DAILY 08/06/17 08/06/17 Meloxicam 15 mg PO DAILY 08/06/17 08/06/17 Naloxone HCl [Narcan] 1 spray NASAL ONCE PRN 08/06/17 08/06/17 Pregabalin [Lyrica] 75 mg PO BID 08/06/17 08/06/17 Ranitidine HCl 150 mg PO DAILY 08/06/17 08/06/17 Varenicline Tartrate [Chantix 1 mg PO BID 08/06/17 08/06/17 Continuing Pack] buPROPion XL [Wellbutrin XL] 150 mg PO DAILY 08/06/17 08/06/17 rOPINIRole HCL [Requip] 4 mg PO HS 08/06/17 08/06/17 Previous Rx's Medication Instructions Recorded clindamycin HCL [Cleocin] 300 mg PO Q8H 4 Days #12 cap 08/08/17 HYDROcodone/APAP 7.5-325MG [[place] 1 tab PO Q6HR PRN 3 Days #12 tab 07/26/20 7.5-325] Methocarbamol [Robaxin-750] 750 mg PO TID PRN #30 tablet 07/26/20 predniSONE 60 mg PO DAILY #30 tab 07/26/20 Allergies Allergy/AdvReac Type Severity Reaction Status Date / Time codeine Allergy Unknown Verified 07/26/20 00:15 Review of Systems ROS Statement: Those systems with pertinent positive or pertinent negative responses have been documented in the HPI. ROS Other: All systems not noted in ROS Statement are negative. Constitutional: Denies: fever, chills, weakness Respiratory: Denies: cough, dyspnea Cardiovascular: Denies: chest pain, palpitations, edema Gastrointestinal: Denies: abdominal pain, vomiting, diarrhea, constipation Genitourinary: Denies: dysuria, frequency, hematuria Musculoskeletal: Reports: as per HPI, back pain Skin: Denies: rash Neurological: Reports: paresthesias. Denies: headache, weakness, numbness Past Medical History Past Medical History: Asthma, Chest Pain / Angina, CVA/TIA, Fibromyalgia, Hyperlipidemia, Hypertension, Osteoarthritis (OA) Additional Past Medical History / Comment(s): migraines,irreg heart beat- skipped beats,tia,seasonal allergies, past anemia took iron supplements, poly cystic ovaries,chronic back pain, vertigo,on depakote for bipolar depression . recently pt had skin on lower leg leg punctured by a chicken- was palced on ab for cellulitis History of Any Multi-Drug Resistant Organisms: None Reported Past Surgical History: Section, Orthopedic Surgery Additional Past Surgical History / Comment(s): x5 c-sections, rt knee arthrocopy, rt knee meniscus repair, lt knee tendone/ligament repair, cervical fusion, L shoulder replacement. Past Anesthesia/Blood Transfusion Reactions: No Reported Reaction Additional Past Anesthesia/Blood Transfusion Reaction / Comment(s): never recieved blood Past Psychological History: Bipolar, Depression Smoking Status: Current every day smoker Past Alcohol Use History: Occasional Past Drug Use History: None Reported - Past Family History Mother Family Medical History: Rheumatoid Arthritis (RA) Additional Family Medical History / Comment(s): alcoholic- has since Father Additional Family Medical History / Comment(s): alcoholic General Exam Limitations: no limitations General appearance: alert, in no apparent distress Head exam: Present: atraumatic, normocephalic Eye exam: Present: normal appearance. Absent: scleral icterus, conjunctival injection Neck exam: Present: normal inspection Respiratory exam: Present: normal lung sounds bilaterally. Absent: respiratory distress, wheezes, rales, rhonchi, stridor Cardiovascular Exam: Present: regular rate, normal rhythm, normal heart sounds. Absent: systolic murmur, diastolic murmur, rubs, gallop GI/Abdominal exam: Present: soft. Absent: distended, tenderness, guarding, rebound, rigid, mass, pulsatile mass Extremities exam: Present: normal inspection, normal capillary refill. Absent: pedal edema, calf tenderness Back exam: Present: normal inspection, tenderness, paraspinal tenderness. Absent: CVA tenderness (R), CVA tenderness (L), vertebral tenderness Neurological exam: Present: alert, reflexes normal. Absent: motor sensory deficit Skin exam: Present: warm, dry, intact, normal color. Absent: rash Course Vital Signs 07/26/20 00:11 Temperature 97.6 F Pulse Rate 70 Respiratory 18 Rate Blood Pressure 111/74 O2 Sat by Pulse 99 Oximetry Disposition Clinical Impression: Lumbar radicular pain Disposition: HOME SELF-CARE Condition: Good Instructions (If sedation given, give patient instructions): Lumbar Radiculopathy (ED) Prescriptions: HYDROcodone/APAP 7.5-325MG [[place] 7.5-325] 1 tab PO Q6HR PRN 3 Days #12 tab PRN Reason: Pain predniSONE 60 mg PO DAILY #30 tab Methocarbamol [Robaxin-750] 750 mg PO TID PRN #30 tablet PRN Reason: pain Is patient prescribed a controlled substance at d/c from ED?: Yes When asked, does pt state using other controlled substances?: No If prescribed controlled substance>3 days was MAPS reviewed?: Prescribed <3 Days If opioid is for acute pain is fill amount 7 days or less?: Yes If Rx opioid, was Start Talking consent form obtained?: Yes Referrals: Mj Moreira DO [Primary Care Provider] - 1-2 days Leena Rashid DO [Doctor of Osteopathic Medicine] - 1-2 days
--- NOTE | 2020-07-26 01:10 | CT ---
EXAM: CT Lumbar Spine Without Intravenous Contrast CLINICAL HISTORY: ITS.REASON CT Reason: radicular pain TECHNIQUE: Axial computed tomography images of the lumbar spine without intravenous contrast. CTDI is 40.084 mGy and DLP is 1436.6 mGy-cm. This CT exam was performed using one or more of the following dose reduction techniques: automated exposure control, adjustment of the mA and/or kV according to patient size, and/or use of iterative reconstruction technique. COMPARISON: No relevant prior studies available. FINDINGS: Vertebrae: No acute fracture. Osteopenia. Minimal retrolisthesis of L2 on L3 and L4 on L5. Discs/spinal canal/neural foramina: No significant spinal canal stenosis. Mild disc bulges from L2-L5. Moderate L3-4 and L4-5 and severe L5-S1 facet arthrosis. Mild to moderate bilateral foraminal stenosis from L2-L5 Soft tissues: Cholelithiasis. Multiple left renal cysts. IMPRESSION: No acute fracture. Multilevel degenerative disease with bilateral foraminal stenosis from L2-L5. Cholelithiasis (two 1.8 cm stones)
== END 2020-07-26 01:57 | disposition home or self-care (01) ==
LOC: EC 23:54
DX: M54.16 Radiculopathy, lumbar region (principal); J45.909 Unspecified asthma, uncomplicated; M79.7 Fibromyalgia; E78.5 Hyperlipidemia, unspecified; I10 Essential (primary) hypertension; M19.90 Unspecified osteoarthritis, unspecified site; F32.9 Major depressive disorder, single episode, unspecified; F17.200 Nicotine dependence, unspecified, uncomplicated; Z86.73 Personal history of transient ischemic attack (TIA), and cerebral infarction without residual deficits
CPT/HCPCS: 72131; 99284; 96372 ×2; J1170; J1885; J7512

== ENCOUNTER 2020-09-20 13:28 | Emergency (ER) | payer MEDICARE, OTHER ==
--- NOTE | 2020-09-20 14:04 | ED ---
General Adult HPI - General Chief complaint: ENT Stated complaint: Tongue Swelling Time Seen by Provider: 09/20/20 13:47 Source: patient, RN notes reviewed, old records reviewed Mode of arrival: wheelchair Limitations: physical limitation - History of Present Illness Initial comments: 55-year-old female with remote history of a tongue piercing presents for swelling and pain of the tongue. This is in the middle began 3 weeks ago as a large swollen mass. She states this did not drain but he did significantly reduce in size. Patient initially noted this 3 weeks ago no injury or trauma to the tongue. No fever. She states at that time the tongue was significantly swollen but is almost completely resolved there is just a small residual nodule in the middle of the tongue. No difficulty breathing. - Related Data Home Medications Medication Instructions Recorded Confirmed RX: ARIPiprazole [Abilify] 5 mg PO DAILY 08/06/17 08/06/17 RX: Albuterol Inhaler (Mhu) 2 puff INHALATION RT-Q4H PRN 08/06/17 08/06/17 [Ventolin Hfa Inhaler (Mhu)] RX: Aspirin EC [Ecotrin Low Dose] 81 mg PO HS 08/06/17 08/06/17 RX: Atorvastatin [Lipitor] 40 mg PO HS 08/06/17 08/06/17 RX: DULoxetine HCL [Cymbalta] 30 mg PO DAILY 08/06/17 08/06/17 RX: Divalproex [Depakote] 1,000 mg PO QAM 08/06/17 08/06/17 RX: Divalproex [Depakote] 500 mg PO HS 08/06/17 08/06/17 RX: Hydrochlorothiazide 12.5 mg PO HS 08/06/17 08/06/17 [hydroCHLOROthiazide] RX: Hydrocodone/Acetaminophen 1 tab PO Q6H PRN 08/06/17 08/06/17 [[place] 10-325] RX: Loratadine [Claritin] 10 mg PO DAILY 08/06/17 08/06/17 RX: Meloxicam 15 mg PO DAILY 08/06/17 08/06/17 RX: Naloxone HCl [Narcan] 1 spray NASAL ONCE PRN 08/06/17 08/06/17 RX: Pregabalin [Lyrica] 75 mg PO BID 08/06/17 08/06/17 RX: Ranitidine HCl 150 mg PO DAILY 08/06/17 08/06/17 RX: Varenicline Tartrate [Chantix 1 mg PO BID 08/06/17 08/06/17 Continuing Pack] RX: buPROPion XL [Wellbutrin XL] 150 mg PO DAILY 08/06/17 08/06/17 RX: rOPINIRole HCL [Requip] 4 mg PO HS 08/06/17 08/06/17 Previous Rx's Medication Instructions Recorded RX: clindamycin HCL [Cleocin] 300 mg PO Q8H 4 Days #12 cap 08/08/17 HYDROcodone/APAP 7.5-325MG [[place] 1 tab PO Q6HR PRN 3 Days #12 tab 07/26/20 7.5-325] Methocarbamol [Robaxin-750] 750 mg PO TID PRN #30 tablet 07/26/20 RX: predniSONE 60 mg PO DAILY #30 tab 07/26/20 Amoxicillin/Potassium Clav 1 tab PO Q12HR 10 Days #20 tab 09/20/20 [Augmentin 875-125 Tablet] Allergies Allergy/AdvReac Type Severity Reaction Status Date / Time codeine Allergy Unknown Verified 09/20/20 13:46 Review of Systems ROS Statement: Those systems with pertinent positive or pertinent negative responses have been documented in the HPI. ROS Other: All systems not noted in ROS Statement are negative. Past Medical History Past Medical History: Asthma, Chest Pain / Angina, CVA/TIA, Fibromyalgia, Hyperlipidemia, Hypertension, Osteoarthritis (OA) Additional Past Medical History / Comment(s): migraines,irreg heart beat- skipped beats,tia,seasonal allergies, past anemia took iron supplements, poly cystic ovaries,chronic back pain, vertigo,on depakote for bipolar depression . recently pt had skin on lower leg leg punctured by a chicken- was palced on ab for cellulitis History of Any Multi-Drug Resistant Organisms: None Reported Past Surgical History: Section, Orthopedic Surgery Additional Past Surgical History / Comment(s): x5 c-sections, rt knee ar throcopy, rt knee meniscus repair, lt knee tendone/ligament repair, cervical fusion, L shoulder replacement. Past Anesthesia/Blood Transfusion Reactions: No Reported Reaction Additional Past Anesthesia/Blood Transfusion Reaction / Comment(s): never recieved blood Past Psychological History: Bipolar, Depression Smoking Status: Current every day smoker Past Alcohol Use History: Occasional Past Drug Use History: None Reported - Past Family History Mother Family Medical History: Rheumatoid Arthritis (RA) Additional Family Medical History / Comment(s): alcoholic- has since Father Additional Family Medical History / Comment(s): alcoholic General Exam Limitations: physical limitation General appearance: alert, in no apparent distress Head exam: Present: atraumatic, normocephalic Eye exam: Present: normal appearance, PERRL ENT exam: Present: other (Small tender cystic structure midline tongue less than this 1 cm, no erythema.) Neck exam: Present: normal inspection. Absent: tenderness, meningismus Respiratory exam: Present: normal lung sounds bilaterally. Absent: respiratory distress, wheezes Cardiovascular Exam: Present: regular rate, normal rhythm GI/Abdominal exam: Present: soft. Absent: distended, tenderness, guarding Medical Decision Making - Medical Decision Making 55-year-old female with pain and swelling to the tongue. This does not appear swollen currently there is a less than 1 cm cystic nodule in the center of the tongue. Patient will be covered with antibiotics and will be given ENT follow- up. She's given strict return parameters. Disposition Clinical Impression: Nodule of tongue Disposition: HOME SELF-CARE Condition: Good Prescriptions: Amoxicillin/Potassium Clav [Augmentin 875-125 Tablet] 1 tab PO Q12HR 10 Days #20 tab Is patient prescribed a controlled substance at d/c from ED?: No Referrals: Mj Moreira DO [Primary Care Provider] - 1-2 days Jorge Manzanares DO [Doctor of Osteopathic Medicine] - 1-2 days Time of Disposition: 14:03
== END 2020-09-20 14:13 | disposition home or self-care (01) ==
LOC: EC 13:28
DX: K14.8 Other diseases of tongue (principal); I10 Essential (primary) hypertension; E78.5 Hyperlipidemia, unspecified; J45.909 Unspecified asthma, uncomplicated; M79.7 Fibromyalgia; M19.90 Unspecified osteoarthritis, unspecified site; F31.9 Bipolar disorder, unspecified; F17.200 Nicotine dependence, unspecified, uncomplicated; Z86.73 Personal history of transient ischemic attack (TIA), and cerebral infarction without residual deficits; Z79.891 Long term (current) use of opiate analgesic; Z79.82 Long term (current) use of aspirin; Z79.51 Long term (current) use of inhaled steroids; Z79.52 Long term (current) use of systemic steroids; Z79.899 Other long term (current) drug therapy; Z88.5 Allergy status to narcotic agent
CPT/HCPCS: 99283

== ENCOUNTER 2020-12-22 01:45 | Emergency (ER) | payer MEDICARE, OTHER ==
[2020-12-22 01:53] VITALS: TEMP 98
[2020-12-22 02:08] VITALS: RESP 18
[2020-12-22] MEDS ORDERED: ALBUTEROL HFA INHALER INHALATION STA (02:12)
[2020-12-22] MEDS ORDERED: SODIUM CHLORIDE 0.9% 1,000 ML IV STA ×2 (02:12)
[2020-12-22] MEDS ORDERED: ACETAMINOPHEN TAB 500 MG TAB PO STA (02:12)
[2020-12-22] MEDS ORDERED: DEXAMETHASONE SOD PHOSPHATE 10 MG/ML 1 ML VIAL IVP STA (02:12)
--- NOTE | 2020-12-22 02:31 | ED ---
Recheck HPI - General Chief Complaint: Upper Respiratory Infection Stated Complaint: COVID+, [place] Time Seen by Provider: 12/22/20 01:58 Source: patient, RN notes reviewed, old records reviewed Mode of arrival: ambulatory Limitations: no limitations - History of Present Illness Initial Comments: This is a 55-year-old female coming in for significant anxiety. Patient having anxiety to recent coronavirus diagnosis. Patient again does have known coronavi lilo. Has complaints of shortness of breath and inability to sleep at night. She has otherwise no no complaints no chest pain is feeling weak anxious at times nauseous secondary to anxiety with dry heaving. Patient has been vaccinated. Patient does have history of asthma high blood pressure by balaji olesterol. MD Complaint: abnormal lab (Positive for coronavirus) -: days(s) (2) Returns Today for: Called Because of Abnormal Lab/Test, persistent/worsening pain related to initial visit Symptoms Since Prior Visit: worsening pain Context: planned re-check Associated Symptoms: shortness of breath Treatments Prior to Arrival: other (none) - Related Data Home Medications Medication Instructions Recorded Confirmed ARIPiprazole [Abilify] 5 mg PO DAILY 08/06/17 08/06/17 Albuterol Inhaler (Mhu) [Ventolin 2 puff INHALATION RT-Q4H PRN 08/06/17 08/06/17 Hfa Inhaler (Mhu)] Aspirin EC [Ecotrin Low Dose] 81 mg PO HS 08/06/17 08/06/17 Atorvastatin [Lipitor] 40 mg PO HS 08/06/17 08/06/17 DULoxetine HCL [Cymbalta] 30 mg PO DAILY 08/06/17 08/06/17 Divalproex [Depakote] 1,000 mg PO QAM 08/06/17 08/06/17 Divalproex [Depakote] 500 mg PO HS 08/06/17 08/06/17 Hydrochlorothiazide 12.5 mg PO HS 08/06/17 08/06/17 [hydroCHLOROthiazide] Hydrocodone/Acetaminophen [[place] 1 tab PO Q6H PRN 08/06/17 08/06/17 10-325] Loratadine [Claritin] 10 mg PO DAILY 08/06/17 08/06/17 Meloxicam 15 mg PO DAILY 08/06/17 08/06/17 Naloxone HCl [Narcan] 1 spray NASAL ONCE PRN 08/06/17 08/06/17 Pregabalin [Lyrica] 75 mg PO BID 08/06/17 08/06/17 Ranitidine HCl 150 mg PO DAILY 08/06/17 08/06/17 Varenicline Tartrate [Chantix 1 mg PO BID 08/06/17 08/06/17 Continuing Pack] buPROPion XL [Wellbutrin XL] 150 mg PO DAILY 08/06/17 08/06/17 rOPINIRole HCL [Requip] 4 mg PO HS 08/06/17 08/06/17 Previous Rx's Medication Instructions Recorded clindamycin HCL [Cleocin] 300 mg PO Q8H 4 Days #12 cap 08/08/17 HYDROcodone/APAP 7.5-325MG [[place] 1 tab PO Q6HR PRN 3 Days #12 tab 07/26/20 7.5-325] Methocarbamol [Robaxin-750] 750 mg PO TID PRN #30 tablet 07/26/20 predniSONE 60 mg PO DAILY #30 tab 07/26/20 Amoxicillin/Potassium Clav 1 tab PO Q12HR 10 Days #20 tab 09/20/20 [Augmentin 875-125 Tablet] Allergies Allergy/AdvReac Type Severity Reaction Status Date / Time codeine Allergy Unknown Verified 12/22/20 01:53 Review of Systems ROS Statement: Those systems with pertinent positive or pertinent negative responses have been documented in the HPI. ROS Other: All systems not noted in ROS Statement are negative. Past Medical History Past Medical History: Asthma, Chest Pain / Angina, CVA/TIA, Fibromyalgia, Hyperlipidemia, Hypertension, Osteoarthritis (OA) Additional Past Medical History / Comment(s): migraines,irreg heart beat- skipped beats,tia,seasonal allergies, past anemia took iron supplements, poly cystic ovaries,chronic back pain, vertigo,on depakote for bipolar depression . recently pt had skin on lower leg leg punctured by a chicken- was palced on ab for cellulitis History of Any Multi-Drug Resistant Organisms: None Reported Past Surgical History: Section, Orthopedic Surgery Additional Past Surgical History / Comment(s): x5 c-sections, rt knee arthrocopy, rt knee meniscus repair, lt knee tendone/ligament repair, cervical fusion, L shoulder replacement. Past Anesthesia/Blood Transfusion Reactions: No Reported Reaction Additional Past Anesthesia/Blood Transfusion Reaction / Comment(s): never recieved blood Past Psychological History: Bipolar, Depression Smoking Status: Current every day smoker Past Alcohol Use History: Occasional Past Drug Use History: Marijuana - Past Family History Mother Family Medical History: Rheumatoid Arthritis (RA) Additional Family Medical History / Comment(s): alcoholic- has since Father Additional Family Medical History / Comment(s): alcoholic General Exam Limitations: no limitations General appearance: alert, in no apparent distress, anxious Head exam: Present: atraumatic, normocephalic, normal inspection Eye exam: Present: normal appearance, PERRL, EOMI. Absent: scleral icterus, conjunctival injection, periorbital swelling ENT exam: Present: normal exam, mucous membranes moist Neck exam: Present: normal inspection. Absent: tenderness, meningismus, lymphadenopathy Respiratory exam: Present: normal lung sounds bilaterally. Absent: respiratory distress, wheezes, rales, rhonchi, stridor Cardiovascular Exam: Present: regular rate, normal rhythm, normal heart sounds. Absent: systolic murmur, diastolic murmur, rubs, gallop, clicks GI/Abdominal exam: Present: soft, normal bowel sounds. Absent: distended, tenderness, guarding, rebound, rigid Extremities exam: Present: normal inspection, full ROM, normal capillary refill. Absent: tenderness, pedal edema, joint swelling, calf tenderness Back exam: Present: normal inspection Neurological exam: Present: alert, oriented X3, CN II-XII intact Psychiatric exam: Present: normal affect, normal mood Skin exam: Present: warm, dry, intact, normal color. Absent: rash Course Vital Signs 12/22/20 12/22/20 01:49 02:08 Temperature 98 F Pulse Rate 77 77 Respiratory 20 18 Rate Blood Pressure 148/82 125/81 O2 Sat by Pulse 97 100 Oximetry - Reevaluation(s) Reevaluation #1: 12/22/20 03:29 Medical record is reviewed Reevaluation #2: 12/22/20 03:29 Patient is in no acute distress Reevaluation #3: 12/22/20 03:29 Patient informed of results, questions have been answered, she does prefer to get [facility] Medical Decision Making - Medical Decision Making 55 female D to the emergency department F for evaluation patient has known coronavirus, patient will take antibiotics here in the emergency department, CT negative for PE and patient can be discharged home - Lab Data Result diagrams: 12/22/20 02:26 Lab Results 12/22/20 12/22/20 Range/Units 02: 02:26 WBC 10.6 (3.8-10.6) k/uL RBC 4.33 (3.80-5.40) m/uL Hgb 13.8 (11.4-16.0) gm/dL Hct 41.0 (34.0-46.0) % MCV 94.9 (80.0-100.0) fL MCH 31.8 (25.0-35.0) pg MCHC 33.5 (31.0-37.0) g/dL RDW 14.6 (11.5-15.5) % Plt Count 275 (150-450) k/uL MPV 8.0 Neutrophils % 55 % Lymphocytes % 38 % Monocytes % 4 % Eosinophils % 1 % Basophils % 0 % Neutrophils # 5.9 (1.3-7.7) k/uL Lymphocytes # 4.0 (1.0-4.8) k/uL Monocytes # 0.5 (0-1.0) k/uL Eosinophils # 0.1 (0-0.7) k/uL Basophils # 0.0 (0-0.2) k/uL Plasma Lactic Acid Shine 1.8 (0.7-2.0) mmol/L - EKG Data -: EKG Interpreted by Me (EKG shows sinus rhythm 77. We'll 48 QRS 76 QTC 453) Disposition Clinical Impression: Coronavirus infection Disposition: HOME SELF-CARE Condition: Good Instructions (If sedation given, give patient instructions): Coronavirus Disease 2019 (COVID-19) Is patient prescribed a controlled substance at d/c from ED?: No Referrals: Mj Moreira DO [Primary Care Provider] - 1-2 days
--- NOTE | 2020-12-22 03:00 | XR ---
EXAMINATION TYPE: XR chest 1V portable DATE OF EXAM: 12/22/2020 COMPARISON: 08/06/2017 HISTORY: Pneumonia TECHNIQUE: Single view FINDINGS: There is no heart failure nor confluent pneumonic infiltrate. Costophrenic angles are clear . There is left shoulder prosthesis. There is cervical spine fusion surgery. IMPRESSION: No active cardiac pulmonary disease. No change.
[2020-12-22 03:13] LABS: Basophils % (A) 0 %; Eosinophils # (A) 0.1 k/uL (0-0.7); Eosinophils % (A) 1 %; HGB 13.8 gm/dL (11.4-16.0); Lymphocytes % (A) 38 %; MCH 31.8 pg (25.0-35.0); MCHC 33.5 g/dL (31.0-37.0); MCV 94.9 fL (80.0-100.0); Monocytes # (A) 0.5 k/uL (0-1.0); Monocytes % (A) 4 %; Neutrophils # (A) 5.9 k/uL (1.3-7.7); Neutrophils % (A) 55 %; Platelet Count 275 k/uL (150-450); RBC 4.33 m/uL (3.80-5.40); RDW 14.6 % (11.5-15.5); WBC 10.6 k/uL (3.8-10.6)
[2020-12-22] MEDS ORDERED: LORazepam 2 MG/ML INJ IV STA (03:14)
[2020-12-22] MEDS ORDERED: PROCHLORPERAZINE INJ 10 MG/2 ML VIAL IVP STA (03:14)
[2020-12-22 03:31] LABS: Albumin 4.2 g/dL (3.5-5.0); C Reactive Protein 0.7 mg/dL (<1.0); Calcium 9.1 mg/dL (8.4-10.2); Magnesium 1.8 mg/dL (1.6-2.3); Potassium 3.7 mmol/L (3.5-5.1); Total Bilirubin 0.2 mg/dL (0.2-1.3); Total Protein 7.4 g/dL (6.3-8.2)
[2020-12-22 03:33] LABS: INR 0.9 (<1.2); Partial Thromboplastin Time 21.6 sec (22.0-30.0); Prothrombin Time 9.6 sec (9.0-12.0)
--- NOTE | 2020-12-22 03:37 | CT ---
EXAMINATION TYPE: CT angio chest DATE OF EXAM: 12/22/2020 COMPARISON: None HISTORY: pe Chest pain CT DLP: 424.5 mGycm Automated exposure control for dose reduction was used. CONTRAST: Performed with IV Contrast, patient injected with 70 mL of Isovue 370. There are 3-D post processed images. Heart size is normal. There is no mediastinal adenopathy. There are a few bilateral bronchial lymph n odes that measure up to 1 cm. There is normal contrast opacification of the pulmonary arteries. There are no filling defects. Thoracic aorta is intact. There is no aneurysm or dissection. Ascending aort a measures 3.6 cm. There is no pleural effusion. There is no pericardial effusion. Lungs are clear of consolidation. The re is some mild emphysema in the right upper lobe. There is some spurring in the thoracic spine. Ther e is no compression fracture. Sternum is intact. There are large calcified gallstones. All bladder i s large and measures 4.3 cm in diameter. IMPRESSION: No evidence of pulmonary embolism. Mild pulmonary emphysema. No acute lung disease. Cholelithiasis. Large gallbladder. Gallbladder dysfunction is suspected.
[2020-12-22] MEDS ORDERED: CASIRIVIMAB (REGN10933) (EUA) 600 MG, IMDEVIMAB (REGN10987) (EUA) 600 MG in SODIUM CHLO... IVPB ONE (04:00)
[2020-12-22] MEDS ORDERED: SODIUM CHLORIDE 0.9% 50 ML IVPB ONE (04:00)
[2020-12-22 05:40] VITALS: BP 131/94; PULSE 75
== END 2020-12-22 05:51 | disposition home or self-care (01) ==
LOC: EC 01:45
DX: U07.1 COVID-19 (principal); J45.909 Unspecified asthma, uncomplicated; E78.5 Hyperlipidemia, unspecified; I10 Essential (primary) hypertension; M19.90 Unspecified osteoarthritis, unspecified site; M79.7 Fibromyalgia; F31.9 Bipolar disorder, unspecified; F17.200 Nicotine dependence, unspecified, uncomplicated; F12.90 Cannabis use, unspecified, uncomplicated; F41.9 Anxiety disorder, unspecified; Z79.82 Long term (current) use of aspirin; Z88.5 Allergy status to narcotic agent; Z86.73 Personal history of transient ischemic attack (TIA), and cerebral infarction without residual deficits
CPT/HCPCS: 99285; 96365; 96375 ×3; 96361 ×2; 36415; 94640; 93005; 83880; 80053; 83605; 83615; 83735; 85025; 85610; 85730; 86140; 87040; 84145; 71045; 71275; J2060; J0780; J1100; Q9967

== ENCOUNTER 2022-08-07 09:14 | Day surgery (SDC) | payer MEDICARE, OTHER ==
[~2022-08-07 09:14] MED LIST: LACTATED RINGERS 1,000 ML IV SCH; LIDOCAINE 1% (10MG/ML) FOR IV START INTRADERMA PRN
[2022-08-07 10:01] VITALS: RESP 16; TEMP 97.7
[2022-08-07] MEDS ORDERED: ONDANSETRON 4 MG/2 ML VIAL ONE (10:21)
[2022-08-07] MEDS ORDERED: ONDANSETRON 4 MG/2 ML VIAL IVP ONE (10:22)
[2022-08-07] MEDS ORDERED: LIDOCAINE 2% INJ 20 MG/ML (2 ML VIAL) ONE (10:44)
[2022-08-07] MEDS ORDERED: PROPOFOL 10 MG/ML 20 ML VIAL IV ONE (10:44)
[2022-08-07] MEDS ORDERED: fentaNYL (PF) 50 MCG/ML 2 ML AMP ONE (10:44)
[2022-08-07 11:37] VITALS: BP 168/90; PULSE 72
--- NOTE | 2022-08-07 11:51 | P.GSHP ---
History of Present Illness H&P Date: 08/07/22 CHIEF COMPLAINT: GERD and colon screen HISTORY OF PRESENT ILLNESS: The patient is a 57-year-old female who presents with gastroesophageal reflux disease and need for colon screen. Upper and lower endoscopy were offered for further evaluation and management. PAST MEDICAL HISTORY: Please see list. PAST SURGICAL HISTORY: Please see list. MEDICATIONS: Please see list. ALLERGIES: Please see list. SOCIAL HISTORY: No illicit drug use FAMILY HISTORY: No reports of Crohn disease or ulcerative colitis. REVIEW OF ORGAN SYSTEMS: CONSTITUTIONAL: No reports of fevers or chills. GI: Denies any blood in stools or constipation. PHYSICAL EXAM: VITAL SIGNS: Stable GENERAL: Well-developed pleasant in no acute distress. HEENT: No scleral icterus. Extraocular movements grossly intact. Moist buccal mucosa. NECK: Supple without lymphadenopathy. CHEST: Unlabored respirations. Equal bilateral excursions. CARDIOVASCULAR: Regular rate and rhythm. Distal 2+ pulses. ABDOMEN: Soft, nondistended. MUSCULOSKELETAL: No clubbing, cyanosis, or edema. ASSESSMENT: 1. Gastroesophageal reflux disease 2. Colon screen. PLAN: 1. Recommend proceeding with an upper and lower endoscopy Past Medical History Past Medical History: Asthma, Chest Pain / Angina, CVA/TIA, Fibromyalgia, Hyperlipidemia, Hypertension, Osteoarthritis (OA) Additional Past Medical History / Comment(s): migraines,irreg heart beat- skipped beats,tia,seasonal allergies, past anemia took iron supplements, EMPHYSEMA poly cystic ovaries,chronic back pain, vertigo,on depakote for bipolar depression . recently pt had skin on lower leg leg punctured by a chicken- was palced on ab for cellulitis History of Any Multi-Drug Resistant Organisms: None Reported Past Surgical History: Section, Orthopedic Surgery Additional Past Surgical History / Comment(s): x5 c-sections, rt knee arthrocopy, rt knee meniscus repair, lt knee tendone/ligament repair, cervical fusion, L shoulder replacement. Past Anesthesia/Blood Transfusion Reactions: No Reported Reaction Additional Past Anesthesia/Blood Transfusion Reaction / Comment(s): never recieved blood Past Psychological History: Bipolar, Depression Smoking Status: Current every day smoker Past Alcohol Use History: Occasional Additional Past Alcohol Use History / Comment(s): started smoking at age 14, was smoking 2 ppd but is currently on chantix and smoking 4-6 cig per day. pt stated currently rarely has a drink Past Drug Use History: None Reported Additional Drug Use History / Comment(s): PREVIOUS MARIJUANA - Past Family History Mother Family Medical History: Rheumatoid Arthritis (RA) Additional Family Medical History / Comment(s): alcoholic- has since Father Additional Family Medical History / Comment(s): alcoholic Medications and Allergies Home Medications Medication Instructions Recorded Confirmed Type ARIPiprazole [Abilify] 5 mg PO DAILY 08/06/17 08/07/22 History Albuterol Inhaler [Ventolin Hfa 2 puff INHALATION RT-Q4H PRN 08/06/17 08/07/22 History Inhaler] Aspirin EC [Ecotrin Low Dose] 81 mg PO HS 08/06/17 08/07/22 History Hydrocodone/Acetaminophen [[place] 1 tab PO Q6H PRN 08/06/17 08/07/22 History 10-325] Loratadine [Claritin] 10 mg PO DAILY 08/06/17 08/07/22 History Meloxicam 15 mg PO DAILY 08/06/17 08/07/22 History Naloxone HCl [Narcan] 1 spray NASAL ONCE PRN 08/06/17 08/07/22 History hydroCHLOROthiazide 12.5 mg PO HS 08/06/17 08/07/22 History rOPINIRole HCL [Requip] 4 mg PO HS 08/06/17 08/07/22 History methocarbamoL [Robaxin-750] 750 mg PO TID PRN #30 tablet 07/26/20 08/07/22 Rx Budesonide-Formot 160-4.5 Mcg 60 gm INHALATION DAILY 08/07/22 08/07/22 History [Symbicort 160-4.5 Mcg Inhaler] Diclofenac Submicronized 70 mg PO DAILY 08/07/22 08/07/22 History [Diclofenac] FLUoxetine HCL [PROzac] 10 mg PO DAILY 08/07/22 08/07/22 History Gabapentin [Neurontin] 600 mg PO TID 08/07/22 08/07/22 History amLODIPine [Norvasc] 10 mg PO DAILY 08/07/22 08/07/22 History lisinopriL 40 mg PO DAILY 08/07/22 08/07/22 History Allergies Allergy/AdvReac Type Severity Reaction Status Date / Time codeine Allergy Unknown Verified 08/07/22 10:04 Surgical - Exam Vital Signs Temp Pulse Resp BP Pulse Ox 97.7 F 79 16 124/71 96 08/07/22 10:00 08/07/22 10:00 08/07/22 10:00 08/07/22 10:00 08/07/22 10:00
--- NOTE | 2022-08-07 11:54 | P.PCN ---
Date of Procedure: 08/07/22 Description of Procedure: PREOPERATIVE DIAGNOSIS: Gastroesophageal reflux disease. POSTOPERATIVE DIAGNOSIS: Gastroesophageal reflux disease. Gastritis. OPERATION: Esophagogastroduodenoscopy with biopsies along antrum. SURGEON: Vane Leavitt MD ANESTHESIA: MAC. INDICATIONS: The patient is a 57-year-old female who presents with reflux disease. Benefits and risks of the procedure were described. Informed consent was obtained. DESCRIPTION: The patient was brought into the endoscopy suite and laid in the left lateral decubitus position. An Olympus gastroscope was passed along the posterior oropharynx down to the distal esophagus where the squamocolumnar junction was encountered at 40 cm from the incisors. The stomach was entered and no bile reflux was found. Additional findings are listed below. Biopsies with cold forceps were obtained of the antrum. The first through third portion of the duodenum was examined. Retroflexion of the scope confirmed Hill grade 3 lower esophageal valve. The squamocolumnar junction demonstrated LA grade B erosive esophagitis. The stomach was desufflated. The patient tolerated the procedure well. FINDINGS: Squamocolumnar junction 38 cm from the incisors. Diaphragmatic hiatus at 38 cm. Hill grade 2 lower esophageal valve. LA grade B erosive esophagitis. Biopsies obtained of duodenum Chronic gastritis with biopsies obtained RECOMMENDATIONS: Upper endoscopy as needed.
--- NOTE | 2022-08-07 11:56 | P.PCN ---
Date of Procedure: 08/07/22 Description of Procedure: PREOPERATIVE DIAGNOSIS: Family history malignant colon polyps Colonoscopy screening POSTOPERATIVE DIAGNOSIS: Tubular adenoma sigmoid colon Tubular adenoma descending colon Sigmoid diverticulosis Internal hemorrhoids, grade 2 OPERATION: Colonoscopy to the ileocecal valve and appendiceal orifice, cecum Colonoscopy with hot snare polypectomy SURGEON: Vane Leavitt MD. ANESTHESIA: MAC. INDICATIONS: The patient is an 57-year-old female who presents family history of malignant colon polyps. Benefits and risks were described and informed consent was obtained. DESCRIPTION OF PROCEDURE: The patient had undergone Sutab prep. The patient had been brought into the operating room and laid in the left lateral decubitus position. After adequate intravenous sedation, the rectum was examined with 2% lidocaine jelly. External hemorrhoids were encountered. The rectal tone was within normal limits. No lesions were palpated in the rectal vault. An Olympus colonoscope was advanced. The prep was good. Sigmoid diverticulosis was encountered. Colonic polyps were found and removed. No evidence of focal colitis was found. Retroflexion of the scope demonstrated grade 2 internal hemorrhoids without active bleeding or inflammation. The colon was desufflated. The patient had tolerated the procedure well. Withdrawal time was over 6 minutes. FINDINGS: Aronchick preparation quality scale 1 (1-5) Internal hemorrhoids, grade 3 with recent inflammation and bleeding External hemorrhoids, grade 4. No arteriovenous malformations. Sigmoid diverticulosis Removal of 6 polyps: - Snare polypectomy 20 to 30 cm from the anal verge, 5 mm to 8 mm tubulovillous adenoma, sigmoid colon/descending colon No focal colitis. RECOMMENDATIONS: Given severity of tubular adenomas, recommend repeat in 6 months, January 2023 Plan - Discharge Summary New Discharge Prescriptions: Continue Albuterol Inhaler [Ventolin Hfa Inhaler] 2 puff INHALATION RT-Q4H PRN PRN Reason: Shortness Of Breath ARIPiprazole [Abilify] 5 mg PO DAILY Aspirin EC [Ecotrin Low Dose] 81 mg PO HS hydroCHLOROthiazide 12.5 mg PO HS Hydrocodone/Acetaminophen [[place] 10-325] 1 tab PO Q6H PRN PRN Reason: Pain Loratadine [Claritin] 10 mg PO DAILY Meloxicam 15 mg PO DAILY Naloxone HCl [Narcan] 1 spray NASAL ONCE PRN PRN Reason: OVERDOSE rOPINIRole HCL [Requip] 4 mg PO HS methocarbamoL [Robaxin-750] 750 mg PO TID PRN #30 tablet PRN Reason: pain lisinopriL 40 mg PO DAILY Gabapentin [Neurontin] 600 mg PO TID FLUoxetine HCL [PROzac] 10 mg PO DAILY Diclofenac Submicronized [Diclofenac] 70 mg PO DAILY Budesonide-Formot 160-4.5 Mcg [Symbicort 160-4.5 Mcg Inhaler] 60 gm INHALATION DAILY amLODIPine [Norvasc] 10 mg PO DAILY Discharge Medication List ARIPiprazole [Abilify] 5 mg PO DAILY 08/06/17 [History] Albuterol Inhaler [Ventolin Hfa Inhaler] 2 puff INHALATION RT-Q4H PRN 08/06/17 [History] Aspirin EC [Ecotrin Low Dose] 81 mg PO HS 08/06/17 [History] Hydrocodone/Acetaminophen [[place] 10-325] 1 tab PO Q6H PRN 08/06/17 [History] Loratadine [Claritin] 10 mg PO DAILY 08/06/17 [History] Meloxicam 15 mg PO DAILY 08/06/17 [History] Naloxone HCl [Narcan] 1 spray NASAL ONCE PRN 08/06/17 [History] hydroCHLOROthiazide 12.5 mg PO HS 08/06/17 [History] rOPINIRole HCL [Requip] 4 mg PO HS 08/06/17 [History] methocarbamoL [Robaxin-750] 750 mg PO TID PRN #30 tablet 07/26/20 [Rx] Budesonide-Formot 160-4.5 Mcg [Symbicort 160-4.5 Mcg Inhaler] 60 gm INHALATION DAILY 08/07/22 [History] Diclofenac Submicronized [Diclofenac] 70 mg PO DAILY 08/07/22 [History] FLUoxetine HCL [PROzac] 10 mg PO DAILY 08/07/22 [History] Gabapentin [Neurontin] 600 mg PO TID 08/07/22 [History] amLODIPine [Norvasc] 10 mg PO DAILY 08/07/22 [History] lisinopriL 40 mg PO DAILY 08/07/22 [History] Follow up Appointment(s)/Referral(s): Vane Leavitt MD [STAFF PHYSICIAN] - 08/19/22 10:30 am Patient Instructions/Handouts: *Surgery [facility] - (Anesthesia) Discharge Instructions Outpatient Surgery Activity/Diet/Wound Care/Special Instructions: Repeat colonoscopy in 6 months, January 2023 Discharge Disposition: HOME SELF-CARE
== END 2022-08-07 12:07 | disposition home or self-care (01) ==
LOC: ORWHC2ENDO 09:14
PROVIDERS: ATTEND Surgery Plastic and Reconstructive Surgery
DX: Z12.11 Encounter for screening for malignant neoplasm of colon (principal); K63.5 Polyp of colon; K57.30 Diverticulosis of large intestine without perforation or abscess without bleeding; K64.1 Second degree hemorrhoids; K64.4 Residual hemorrhoidal skin tags; K29.50 Unspecified chronic gastritis without bleeding; K31.89 Other diseases of stomach and duodenum; K21.00 Gastro-esophageal reflux disease with esophagitis, without bleeding; K44.9 Diaphragmatic hernia without obstruction or gangrene; Z83.71 Family history of colonic polyps; I10 Essential (primary) hypertension; E78.5 Hyperlipidemia, unspecified; I25.10 Atherosclerotic heart disease of native coronary artery without angina pectoris; J43.9 Emphysema, unspecified; M79.7 Fibromyalgia; G43.909 Migraine, unspecified, not intractable, without status migrainosus; M19.90 Unspecified osteoarthritis, unspecified site; F32.A Depression, unspecified; F17.210 Nicotine dependence, cigarettes, uncomplicated; F10.20 Alcohol dependence, uncomplicated; D64.9 Anemia, unspecified; Z86.73 Personal history of transient ischemic attack (TIA), and cerebral infarction without residual deficits; F12.90 Cannabis use, unspecified, uncomplicated; Z79.899 Other long term (current) drug therapy; Z79.82 Long term (current) use of aspirin; Z79.51 Long term (current) use of inhaled steroids; Z79.1 Long term (current) use of non-steroidal anti-inflammatories (NSAID); Z88.5 Allergy status to narcotic agent
CPT/HCPCS: 88305; 45385; 43239; J2405; J3010; J2704; J2001

== ENCOUNTER → 2022-10-08 | Outpatient (CLI) | payer MEDICARE, OTHER ==
--- NOTE | 2022-10-08 13:41 | US ---
EXAMINATION TYPE: US abdomen complete DATE OF EXAM: 10/08/2022 COMPARISON: NONE CLINICAL INDICATION: Female, 57 years old with history of K80.71 CALCULUS OF GB AND BILE DUCT W/O CHO LECYST; Pain TECHNIQUE: Multiple sonographic images of the abdomen are obtained. FINDINGS: EXAM MEASUREMENTS: Liver Length: 17 cm Gallbladder Wall: .2 cm CBD: .8 cm Spleen: 10.1 cm Right Kidney: 11.1 x 4.8 x 4.2 cm Left Kidney: 11.5 x 3.5 x 7.8 cm MONOGRAM TECHNICIAN NOTES: Pancreas: Tail obscured by overlying bowel gas Liver: wnl Gallbladder: Stones visualized Evidence for sonographic Galvin's sign: no CBD: Dilated Spleen: wnl Right Kidney: wnl Left Kidney: Multiple cysts largest 11.5 x 6.8 x 10.1cm Upper IVC: wnl Abd Aorta: wnl The liver is homogenous. The intrahepatic portion of the IVC and proximal abdominal aorta are within normal limits. The visualized portions of the pancreas are homogenous. The spleen is unremarkable. Kidneys are symmetric and free of hydronephrosis. IMPRESSION: 1. Cholelithiasis with gallbladder sludge and dilatation of the common bile duct which is mild in deg ree. No evidence of pericholecystic fluid or wall thickening. 2. Left-sided renal cysts.
== END | disposition home or self-care (01) ==
LOC: RADUSWWP 09:26
PROVIDERS: ATTEND Family Medicine
DX: K80.71 Calculus of gallbladder and bile duct without cholecystitis with obstruction (principal); N28.1 Cyst of kidney, acquired
CPT/HCPCS: 76700

== ENCOUNTER 2022-10-13 18:59 | Observation (INO) | payer MEDICARE, OTHER ==
--- NOTE | 2022-10-13 20:12 | ED ---
Abdominal Pain HPI - General Chief Complaint: Abdominal Pain Stated Complaint: Gallbladder attack Time Seen by Provider: 10/13/22 20:11 Source: patient Mode of arrival: ambulatory Limitations: no limitations - History of Present Illness Initial Comments: 57-year-old female with history of gallstones presenting with chief complaint of epigastric abdominal pain. Pain started today. She admits to nausea with no vomiting. Pain does radiate into the chest. Hurts when she moves her arm. No fevers or chills. No diarrhea. No difficulty breathing. No URI like symptoms. States that she had a recent abdominal ultrasound.. - Related Data Home Medications Medication Instructions Recorded Confirmed ARIPiprazole [Abilify] 5 mg PO DAILY 08/06/17 08/07/22 Albuterol Inhaler [Ventolin Hfa 2 puff INHALATION RT-Q4H PRN 08/06/17 08/07/22 Inhaler] Aspirin EC [Ecotrin Low Dose] 81 mg PO HS 08/06/17 08/07/22 Hydrocodone/Acetaminophen [[place] 1 tab PO Q6H PRN 08/06/17 08/07/22 10-325] Loratadine [Claritin] 10 mg PO DAILY 08/06/17 08/07/22 Meloxicam 15 mg PO DAILY 08/06/17 08/07/22 Naloxone HCl [Narcan] 1 spray NASAL ONCE PRN 08/06/17 08/07/22 hydroCHLOROthiazide 12.5 mg PO HS 08/06/17 08/07/22 rOPINIRole HCL [Requip] 4 mg PO HS 08/06/17 08/07/22 Budesonide-Formot 160-4.5 Mcg 60 gm INHALATION DAILY 08/07/22 08/07/22 [Symbicort 160-4.5 Mcg Inhaler] Diclofenac Submicronized 70 mg PO DAILY 08/07/22 08/07/22 [Diclofenac] FLUoxetine HCL [PROzac] 10 mg PO DAILY 08/07/22 08/07/22 Gabapentin [Neurontin] 600 mg PO TID 08/07/22 08/07/22 amLODIPine [Norvasc] 10 mg PO DAILY 08/07/22 08/07/22 lisinopriL 40 mg PO DAILY 08/07/22 08/07/22 Previous Rx's Medication Instructions Recorded methocarbamoL [Robaxin-750] 750 mg PO TID PRN #30 tablet 07/26/20 Allergies Allergy/AdvReac Type Severity Reaction Status Date / Time codeine Allergy Unknown Verified 10/13/22 20:05 Review of Systems ROS Statement: Those systems with pertinent positive or pertinent negative responses have been documented in the HPI. ROS Other: All systems not noted in ROS Statement are negative. Past Medical History Past Medical History: Asthma, Chest Pain / Angina, CVA/TIA, Fibromyalgia, Hyperlipidemia, Hypertension, Osteoarthritis (OA) Additional Past Medical History / Comment(s): migraines,irreg heart beat- skipped beats,tia,seasonal allergies, past anemia took iron supplements, EMPHYSEMA poly cystic ovaries,chronic back pain, vertigo,on depakote for bipolar depression . recently pt had skin on lower leg leg punctured by a chicken- was palced on ab for cellulitis History of Any Multi-Drug Resistant Organisms: None Reported Past Surgical History: Section, Orthopedic Surgery Additional Past Surgical History / Comment(s): x5 c-sections, rt knee arthrocopy, rt knee meniscus repair, lt knee tendone/ligament repair, cervical fusion, L shoulder replacement. Past Anesthesia/Blood Transfusion Reactions: No Reported Reaction Additional Past Anesthesia/Blood Transfusion Reaction / Comment(s): never recieved blood Past Psychological History: Bipolar, Depression Smoking Status: Current every day smoker Past Alcohol Use History: Occasional Past Drug Use History: None Reported - Past Family History Mother Family Medical History: Rheumatoid Arthritis (RA) Additional Family Medical History / Comment(s): alcoholic- has since Father Additional Family Medical History / Comment(s): alcoholic General Exam Limitations: no limitations General appearance: alert, in no apparent distress Head exam: Present: atraumatic, normocephalic, normal inspection Eye exam: Present: normal appearance, EOMI Neck exam: Present: normal inspection, full ROM Respiratory exam: Present: normal lung sounds bilaterally. Absent: respiratory distress, wheezes, rales, rhonchi, stridor Cardiovascular Exam: Present: regular rate, normal rhythm, normal heart sounds. Absent: systolic murmur, diastolic murmur, rubs, gallop, clicks GI/Abdominal exam: Present: soft, tenderness. Absent: distended, guarding, rebound, rigid Neurological exam: Present: alert, oriented X3, CN II-XII intact Psychiatric exam: Present: normal affect, normal mood Skin exam: Present: warm, dry, intact, normal color. Absent: rash Course Vital Signs 10/13/22 10/13/22 10/13/22 20:05 22:56 23:00 Temperature 98.6 F Pulse Rate 69 72 74 Respiratory 18 20 18 Rate Blood Pressure 141/81 128/81 128/81 O2 Sat by Pulse 98 97 96 Oximetry 10/14/22 10/14/22 10/14/22 00:00 01:00 02:00 Temperature Pulse Rate 68 78 80 Respiratory 20 20 22 Rate Blood Pressure 133/87 138/83 118/64 O2 Sat by Pulse 97 99 97 Oximetry Medical Decision Making - Medical Decision Making Was pt. sent in by a medical professional or institution (, PA, IT BUSINESS SYSTEMS ANALYST, urgent care, hospital, or residential...) When possible be specific @ -No Did you speak to anyone other than the patient for history (EMS, parent, family, police, friend...)? What history was obtained from this source @ -No Did you review nursing and triage notes (agree or disagree)? Why? @ -I reviewed and agree with nursing and triage notes Were old charts reviewed (outside hosp., previous admission, EMS record, old EKG, old radiological studies, urgent care reports/EKG's, residential records)? Report findings @ -No old charts were reviewed Differential Diagnosis (chest pain, altered mental status, abdominal pain women, abdominal pain men, vaginal bleeding, weakness, fever, dyspnea, syncope, headache, dizziness, GI bleed, back pain, seizure, CVA, palpatations, mental health, musculoskeletal)? @ -MDM Differential Abdominal Pain Women: Appendicitis, Cholecystitis, diverticulosis, ischemic bowel, pancreatitis, hepatitis, UTI, gastroenteritis, AAA, incarcerated hernia, bowel obstruction, constipation, inflammatory bowel, hepatitis, peptic ulcer disease, splenic infarction, perforated viscus, vulvitis, ovarian torsion, PID, kidney stone, placenta abruption... This is not meant to be an all-inclusive list EKG interpreted by me (3pts min.). @ -Sinus rhythm ventricular rate 62. MD interval 152. QRS 73. QT 438. QTC 443. No ischemic changes. X-rays interpreted by me (1pt min.). @ -None done CT interpreted by me (1pt min.). @ -None done U/S interpreted by me (1pt. min.). @ -Ultrasound shows numerous gallstones and sludge with moderate gallbladder distention.. Cholecystic fluid with hypervascular gallbladder wall concerning for acute cholecystitis What testing was considered but not performed or refused? (CT, X-rays, U/S, labs)? Why? @ -None What meds were considered but not given or refused? Why? @ -None Did you discuss the management of the patient with other professionals (professionals i.e. DrSia, PA, IT BUSINESS SYSTEMS ANALYST, lab, RT, psych nurse, social media community manager, vp strategy, teacher, special officer, case fitter)? Give summary @ -Spoke with Dr. Burr who accepted admission of this patient Was smoking cessation discussed for >3mins.? @ -No Was critical care preformed (if so, how long)? @ -No Were there social determinants of health that impacted care today? How? (Homelessness, low income, unemployed, alcoholism, drug addiction, transportation, low edu. Level, literacy, decrease access to med. care, skilled nursing, rehab)? @ -No Was there de-escalation of care discussed even if they declined (Discuss DNR or withdrawal of care, Hospice)? DNR status @ -No What co-morbidities impacted this encounter? (DM, HTN, Smoking, COPD, CAD, Cancer, CVA, ARF, Chemo, Hep., AIDS, mental health diagnosis, sleep apnea, morbid obesity)? @ -None Was patient admitted / discharged? Hospital course, mention meds given and route, prescriptions, significant lab abnormalities, going to OR and other pertinent info. @ -57-year-old female presenting with chief complaint of epigastric pain and nausea. On physical examination there is abdominal tenderness. WBC 12.0. Negative troponin. Ultrasound shows evidence of cholecystitis. Patient is started on Zosyn and placed nothing by mouth. She is given pain and nausea medication. She will be admitted to Dr. Burr. Patient is agreeable with this plan. I discussed this case with my attending Dr. Eastman Undiagnosed new problem with uncertain prognosis? @ -No Drug Therapy requiring intensive monitoring for toxicity (Heparin, Nitro, Insulin, Cardizem)? @ -No Were any procedures done? @ -No Diagnosis/symptom? @ -Cholecystitis Acute, or Chronic, or Acute on Chronic? @ -Acute Uncomplicated (without systemic symptoms) or Complicated (systemic symptoms)? @ -Complicated Side effects of treatment? @ -No Exacerbation, Progression, or Severe Exacerbation? @ -No Poses a threat to life or bodily function? How? (Chest pain, [place], [place], pneumonia, PE, COPD, DKA, ARF, appy, cholecystitis, CVA, Diverticulitis, Homicidal, Suicidal, threat to staff... and all critical care pts) @ -Yes - Lab Data Result diagrams: 10/13/22 21:25 10/13/22 21:25 Lab Results 10/13/22 10/13/22 10/13/22 Range/Units 21:25 21:25 21:25 WBC 12.0 H (3.8-10.6) k/uL RBC 4.35 (3.80-5.40) m/uL Hgb 14.2 (11.4-16.0) gm/dL Hct 41.3 (34.0-46.0) % MCV 94.9 (80.0-100.0) fL MCH 32.7 (25.0-35.0) pg MCHC 34.5 (31.0-37.0) g/dL RDW 13.0 (11.5-15.5) % Plt Count 216 (150-450) k/uL MPV 8.5 Neutrophils % 55 % Lymphocytes % 35 % Monocytes % 3 % Eosinophils % 5 % Basophils % 1 % Neutrophils # 6.6 (1.3-7.7) k/uL Lymphocytes # 4.2 (1.0-4.8) k/uL Monocytes # 0.4 (0-1.0) k/uL Eosinophils # 0.6 (0-0.7) k/uL Basophils # 0.1 (0-0.2) k/uL PT 9.5 (9.0-12.0) sec INR 0.9 (<1.2) APTT 22.1 (22.0-30.0) sec Sodium 139 (137-145) mmol/L Potassium 3.7 (3.5-5.1) mmol/L Chloride 107 (98-107) mmol/L Carbon Dioxide 23 (22-30) mmol/L Anion Gap 9 mmol/L BUN 20 H (7-17) mg/dL Creatinine 0.89 (0.52-1.04) mg/dL Est GFR (CKD-EPI)AfAm 84 (>60 ml/min/1.73 sqM) Est GFR (CKD-EPI)NonAf 73 (>60 ml/min/1.73 sqM) Glucose 107 H (74-99) mg/dL Plasma Lactic Acid Shine (0.7-2.0) mmol/L Calcium 9.1 (8.4-10.2) mg/dL Total Bilirubin 0.3 (0.2-1.3) mg/dL AST 24 (14-36) U/L ALT 24 (4-34) U/L Alkaline Phosphatase 103 (38-126) U/L Troponin I (0.000-0.034) ng/mL Total Protein 7.5 (6.3-8.2) g/dL Albumin 4.2 (3.5-5.0) g/dL Amylase 58 (30-110) U/L Lipase 279 (23-300) U/L 10/13/22 10/13/22 Range/Units 21:25 21:25 WBC (3.8-10.6) k/uL RBC (3.80-5.40) m/uL Hgb (11.4-16.0) gm/dL Hct (34.0-46.0) % MCV (80.0-100.0) fL MCH (25.0-35.0) pg MCHC (31.0-37.0) g/dL RDW (11.5-15.5) % Plt Count (150-450) k/uL MPV Neutrophils % % Lymphocytes % % Monocytes % % Eosinophils % % Basophils % % Neutrophils # (1.3-7.7) k/uL Lymphocytes # (1.0-4.8) k/uL Monocytes # (0-1.0) k/uL Eosinophils # (0-0.7) k/uL Basophils # (0-0.2) k/uL PT (9.0-12.0) sec INR (<1.2) APTT (22.0-30.0) sec Sodium (137-145) mmol/L Potassium (3.5-5.1) mmol/L Chloride (98-107) mmol/L Carbon Dioxide (22-30) mmol/L Anion Gap mmol/L BUN (7-17) mg/dL Creatinine (0.52-1.04) mg/dL Est GFR (CKD-EPI)AfAm (>60 ml/min/1.73 sqM) Est GFR (CKD-EPI)NonAf (>60 ml/min/1.73 sqM) Glucose (74-99) mg/dL Plasma Lactic Acid Shine 1.1 (0.7-2.0) mmol/L Calcium (8.4-10.2) mg/dL Total Bilirubin (0.2-1.3) mg/dL AST (14-36) U/L ALT (4-34) U/L Alkaline Phosphatase (38-126) U/L Troponin I <0.012 (0.000-0.034) ng/mL Total Protein (6.3-8.2) g/dL Albumin (3.5-5.0) g/dL Amylase (30-110) U/L Lipase (23-300) U/L Disposition Clinical Impression: Cholecystitis Disposition: ADMITTED IP TO THIS [facility] Condition: Fair Time of Disposition: 23:50
[2022-10-13 21:59] LABS: Basophils # (A) 0.1 k/uL (0-0.2); Basophils % (A) 1 %; Eosinophils # (A) 0.6 k/uL (0-0.7); Eosinophils % (A) 5 %; HCT 41.3 % (34.0-46.0); HGB 14.2 gm/dL (11.4-16.0); Lymphocytes # (A) 4.2 k/uL (1.0-4.8); Lymphocytes % (A) 35 %; MCH 32.7 pg (25.0-35.0); MCHC 34.5 g/dL (31.0-37.0); MCV 94.9 fL (80.0-100.0); Mean Platelet Volume 8.5; Monocytes # (A) 0.4 k/uL (0-1.0); Monocytes % (A) 3 %; Neutrophils # (A) 6.6 k/uL (1.3-7.7); Neutrophils % (A) 55 %; Platelet Count 216 k/uL (150-450); RBC 4.35 m/uL (3.80-5.40)
[2022-10-13 22:07] LABS: AST 24 U/L (14-36); African American GFR (CKD) 84 (>60 ml/min/1.73 sqM); Albumin 4.2 g/dL (3.5-5.0); Amylase 58 U/L (30-110); Blood Urea Nitrogen 20 mg/dL (7-17); Calcium 9.1 mg/dL (8.4-10.2); Carbon Dioxide 23 mmol/L (22-30); Chloride 107 mmol/L (98-107); Glucose 107 mg/dL (74-99); Non-African American GFR(CKD) 73 (>60 ml/min/1.73 sqM); Total Bilirubin 0.3 mg/dL (0.2-1.3); Total Protein 7.5 g/dL (6.3-8.2)
[2022-10-13 22:10] LABS: INR 0.9 (<1.2); Partial Thromboplastin Time 22.1 sec (22.0-30.0); Prothrombin Time 9.5 sec (9.0-12.0)
[2022-10-13 22:57] LABS: Alkaline Phosphatase 103 U/L (38-126); Anion Gap 9 mmol/L; Potassium 3.7 mmol/L (3.5-5.1); Sodium 139 mmol/L (137-145)
[2022-10-13] MEDS ORDERED: MORPHINE SULFATE 4 MG/ML SYRINGE IVP STA (23:09)
[2022-10-13] MEDS ORDERED: ONDANSETRON 4 MG/2 ML VIAL IVP STA (23:09)
[2022-10-13 23:21] LABS: ALT 24 U/L (4-34); Lipase 279 U/L (23-300)
--- NOTE | 2022-10-13 23:37 | US ---
EXAM: US Abdomen Complete CLINICAL HISTORY: ITS.REASON US Reason: epigastric pain TECHNIQUE: Real-time ultrasound of the abdomen with image documentation. COMPARISON: No relevant prior studies available. FINDINGS: Liver: Unremarkable. No mass. No intrahepatic bile duct dilation. Gallbladder: Numerous gallstones and sludge with moderate gallbladder distention. No gallbladder wall thickening but there is mild pericholecystic fluid with hypervascular the wall. Findings are concerning for acute cholecystitis. Common bile duct: Common bile duct measures 5.9 mm. No stones. No dilation. Pancreas: Unremarkable as visualized. Kidneys: Right kidney measures 10.8 cm. No stones. No hydronephrosis. Spleen: Unremarkable. No splenomegaly. Aorta: Unremarkable. No abdominal aortic aneurysm. Inferior vena cava: Unremarkable. IMPRESSION: Numerous gallstones and sludge with moderate gallbladder distention. Pericholecystic fluid with hypervascular gallbladder wall concerning for acute cholecystitis.
[2022-10-13] MEDS ORDERED: ONDANSETRON 4 MG/2 ML VIAL IVP PRN (23:48)
[2022-10-13] MEDS ORDERED: NALOXONE 0.4 MG/ML 1 ML VIAL IV PRN (23:48)
[2022-10-13] MEDS ORDERED: KETOROLAC 15 MG/ML 1 ML VIAL IVP PRN (23:48)
[2022-10-14] MEDS: PIPERACILLIN-TAZOBACTAM 3.375 GM in SODIUM CHLORIDE 0.9% 100 ML IVPB SCH ×4 (00:44→23:16)
[2022-10-14] MEDS: SODIUM CHLORIDE 0.9% 1,000 ML IV SCH ×2 (00:53→15:07)
[2022-10-14] MEDS: HYDROmorphone 1 MG/ML 1 ML SYRINGE IVP PRN ×2 (01:59→08:53)
[2022-10-14] MEDS ORDERED: IV FLUID CONTINUATION 1,000 ML IV ONE ×2 (10:32)
--- NOTE | 2022-10-14 10:46 | P.GSHP ---
History of Present Illness H&P Date: 10/14/22 Chief Complaint: Right upper quadrant pain This a 57-year-old female who presents emergency room with complaints of right upper quadrant pain. Patient's workup found have evidence of acute cholecystitis. Patient will show shows evidence of cholelithiasis and pericholecystic fluid. Patient states she's had pains of epigastric quadrant pain in the past. Past Medical History Past Medical History: Asthma, Chest Pain / Angina, CVA/TIA, Fibromyalgia, Hyperlipidemia, Hypertension, Osteoarthritis (OA) Additional Past Medical History / Comment(s): migraines,irreg heart beat- skipped beats,tia,seasonal allergies, past anemia took iron supplements, EMPHYSEMA poly cystic ovaries,chronic back pain, vertigo,on depakote for bipolar depression . recently pt had skin on lower leg leg punctured by a bharat- was hakan daugherty on ab for cellulitis History of Any Multi-Drug Resistant Organisms: None Reported Past Surgical History: Section, Orthopedic Surgery Additional Past Surgical History / Comment(s): x5 c-sections, rt knee arthroc opy, rt knee meniscus repair, lt knee tendone/ligament repair, cervical fusion, L shoulder replacement. Past Anesthesia/Blood Transfusion Reactions: No Reported Reaction Additional Past Anesthesia/Blood Transfusion Reaction / Comment(s): never reciev ed blood Past Psychological History: Bipolar, Depression Smoking Status: Current every day smoker Past Alcohol Use History: Occasional Past Drug Use History: None Reported - Past Family History Mother Family Medical History: Rheumatoid Arthritis (RA) Additional Family Medical History / Comment(s): alcoholic- has since Father Additional Family Medical History / Comment(s): alcoholic Medications and Allergies Home Medications Medication Instructions Recorded Confirmed Type Albuterol Inhaler [Ventolin Hfa 2 puff INHALATION RT-Q4H PRN 08/06/17 10/14/22 History Inhaler] Aspirin EC [Ecotrin Low Dose] 81 mg PO HS 08/06/17 10/14/22 History Hydrocodone/Acetaminophen [[place] 1 tab PO Q4H PRN 08/06/17 10/14/22 History 10-325] Loratadine [Claritin] 10 mg PO DAILY 08/06/17 10/14/22 History Naloxone HCl [Narcan] 1 spray NASAL ONCE PRN 08/06/17 10/14/22 History rOPINIRole HCL [Requip] 4 mg PO HS 08/06/17 10/14/22 History Budesonide-Formot 160-4.5 Mcg 2 puff INHALATION RT-BID 08/07/22 10/14/22 History [Symbicort 160-4.5 Mcg Inhaler] amLODIPine [Norvasc] 10 mg PO DAILY 08/07/22 10/14/22 History lisinopriL 40 mg PO DAILY 08/07/22 10/14/22 History ARIPiprazole [Abilify] 2 mg PO HS 10/14/22 10/14/22 History Diclofenac Sodium [Voltaren] 75 mg PO BID 10/14/22 10/14/22 History FLUoxetine HCL [PROzac] 40 mg PO DAILY 10/14/22 10/14/22 History Gabapentin 600 mg PO TID 10/14/22 10/14/22 History Nortriptyline HCl [Pamelor] 75 mg PO HS 10/14/22 10/14/22 History Pantoprazole Sodium [Protonix] 40 mg PO DAILY 10/14/22 10/14/22 History Varenicline [Chantix Starter Pack] 0.5 mg PO DIRECTED 10/14/22 10/14/22 History hydroCHLOROthiazide 25 mg PO DAILY 10/14/22 10/14/22 History methocarbamoL [Robaxin] 500 mg PO DAILY 10/14/22 10/14/22 History tiZANidine [Zanaflex] 4 mg PO HS 10/14/22 10/14/22 History Allergies Allergy/AdvReac Type Severity Reaction Status Date / Time codeine Allergy Unknown Verified 10/14/22 07:43 omeprazole [From Prilosec] Allergy Rash/Hives Verified 10/14/22 07:43 Surgical - Exam Vital Signs Temp Pulse Resp BP Pulse Ox 98.6 F 69 18 141/81 98 10/13/22 20:05 10/13/22 20:05 10/13/22 20:05 10/13/22 20:05 10/13/22 20:05 - General well developed, well nourished, no distress - Eyes PERRL - ENT normal pinna - Neck no masses - Respiratory normal expansion - Cardiovascular Rhythm: regular - Abdomen Epigastric and right upper quadrant pain with palpation Abdomen: soft Results - Labs 10/13/22 21:25 10/13/22 21:25 Abnormal Lab Results - Last 24 Hours (Table) 10/13/22 10/13/22 Range/Units 21:25 21:25 WBC 12.0 H (3.8-10.6) k/uL BUN 20 H (7-17) mg/dL Glucose 107 H (74-99) mg/dL Diabetes panel 10/13/22 Range/Units 21:25 Sodium 139 (137-145) mmol/L Potassium 3.7 (3.5-5.1) mmol/L Chloride 107 (98-107) mmol/L Carbon Dioxide 23 (22-30) mmol/L BUN 20 H (7-17) mg/dL Creatinine 0.89 (0.52-1.04) mg/dL Glucose 107 H (74-99) mg/dL Calcium 9.1 (8.4-10.2) mg/dL AST 24 (14-36) U/L ALT 24 (4-34) U/L Alkaline Phosphatase 103 (38-126) U/L Total Protein 7.5 (6.3-8.2) g/dL Albumin 4.2 (3.5-5.0) g/dL Calcium panel 10/13/22 Range/Units 21:25 Calcium 9.1 (8.4-10.2) mg/dL Albumin 4.2 (3.5-5.0) g/dL Pituitary panel 10/13/22 Range/Units 21:25 Sodium 139 (137-145) mmol/L Potassium 3.7 (3.5-5.1) mmol/L Chloride 107 (98-107) mmol/L Carbon Dioxide 23 (22-30) mmol/L BUN 20 H (7-17) mg/dL Creatinine 0.89 (0.52-1.04) mg/dL Glucose 107 H (74-99) mg/dL Calcium 9.1 (8.4-10.2) mg/dL Adrenal panel 10/13/22 Range/Units 21:25 Sodium 139 (137-145) mmol/L Potassium 3.7 (3.5-5.1) mmol/L Chloride 107 (98-107) mmol/L Carbon Dioxide 23 (22-30) mmol/L BUN 20 H (7-17) mg/dL Creatinine 0.89 (0.52-1.04) mg/dL Glucose 107 H (74-99) mg/dL Calcium 9.1 (8.4-10.2) mg/dL Total Bilirubin 0.3 (0.2-1.3) mg/dL AST 24 (14-36) U/L ALT 24 (4-34) U/L Alkaline Phosphatase 103 (38-126) U/L Total Protein 7.5 (6.3-8.2) g/dL Albumin 4.2 (3.5-5.0) g/dL - Imaging US - abdomen: report reviewed (Cholelithiasis) Assessment and Plan Assessment: Cholelithiasis Cholecystitis We'll perform laparoscopic cholecystectomy.
[2022-10-14] MEDS ORDERED: ACETAMINOPHEN TAB 500 MG TAB ONE (10:56)
[2022-10-14] MEDS ORDERED: HEPARIN SODIUM,PORCINE/PF 5,000 UNIT/0.5 ML SYRINGE SQ ONE (10:56)
[2022-10-14] MEDS ORDERED: NEOSTIGMINE 1 MG/ML 10 ML VIAL ONE (10:59)
[2022-10-14] MEDS ORDERED: GLYCOPYRROLATE 0.2 MG/ML 2 ML VIAL ONE (10:59)
[2022-10-14] MEDS ORDERED: MIDAZOLAM 2 MG/2 ML VIAL ONE (10:59)
[2022-10-14] MEDS ORDERED: fentaNYL (PF) 50 MCG/ML 2 ML AMP ONE (10:59)
[2022-10-14] MEDS ORDERED: KETOROLAC 15 MG/ML 1 ML VIAL ONE (10:59)
[2022-10-14] MEDS ORDERED: ROCURONIUM 10 MG/ML (5 ML VIAL) IV ONE (10:59)
[2022-10-14] MEDS ORDERED: LIDOCAINE 4% LTA KIT (4 ML) TOPICAL ONE (10:59)
[2022-10-14] MEDS ORDERED: PROPOFOL 10 MG/ML 20 ML VIAL IV ONE (10:59)
[2022-10-14] MEDS ORDERED: LIDOCAINE 2% INJ 20 MG/ML (2 ML VIAL) ONE (10:59)
[2022-10-14] MEDS ORDERED: SUCCINYLCHOLINE CHLORIDE 200 MG/10 ML VIAL IV ONE (10:59)
[2022-10-14] MEDS ORDERED: HYDROmorphone (PF) 1 MG/ML ONE (10:59)
[2022-10-14] MEDS ORDERED: HEPARIN SODIUM,PORCINE 5,000 UNIT/ML 1 ML VIAL SQ ONE (11:00)
[2022-10-14] MEDS ORDERED: ACETAMINOPHEN TAB 500 MG TAB PO ONE (11:00)
[2022-10-14] MEDS ORDERED: BUPIVACAINE (PF) 0.25% 30 ML VIAL SQ ONE (11:19)
[2022-10-14] MEDS ORDERED: HYDROcodone/APAP 5-325MG 1 EACH TAB PO PRN (11:56)
[2022-10-14] MEDS ORDERED: LACTATED RINGERS 1,000 ML IV ONE (11:56)
[2022-10-14] MEDS ORDERED: ONDANSETRON 4 MG/2 ML VIAL IVP PRN (11:56)
[2022-10-14] MEDS ORDERED: traMADol 50 MG TAB PO PRN (11:56)
[2022-10-14] MEDS ORDERED: ACETAMINOPHEN TAB 325 MG TAB PO PRN (11:56)
[2022-10-14] MEDS ORDERED: NALOXONE 0.4 MG/ML 1 ML VIAL IV PRN (11:56)
--- NOTE | 2022-10-14 11:56 | P.OP ---
Date of Procedure: 10/14/22 Preoperative Diagnosis: Cholecystitis Postoperative Diagnosis: Cholecystitis Procedure(s) Performed: Laparoscopic cholecystectomy Anesthesia: DAMION Surgeon: Stevie Burr Estimated Blood Loss (ml): 5 Pathology: other (Gallbladder) Condition: stable Disposition: PACU Description of Procedure: The patient was placed on the operating table. The patient received a general endotracheal tube anesthesia. The patients abdomen was prepped and draped in the usual sterile fashion. Through an infraumbilical stab incision, the fascia of the anterior abdominal wall was grasped with a pair of Kochers and then the Veress needle was placed in the peritoneal cavity. Position of the Veress needle was confirmed with positive drop test. The abdomen was then insufflated. After adequate insufflation, the 10 mm trocar was placed in the peritoneal cavity. Following this the laparoscope was placed in the peritoneal cavity. The patient was placed in the head-up, right side up position and then a 5 mm trocar was placed in the right lateral and right subcostal position under direct visualization. A 8 mm trocar was placed in the epigastric position. The gallbladder was grasped in the fundus and infundibulum. Traction on the gallbladder was placed in the lateral and the cephalad positions. The triangle of Calot was visualized.. The cystic duct was bluntly dissected until the union of the cystic duct and common bile duct was seen. A critical view of safety was achieved. The cystic duct was then divided and sealed with the Harmonic scissors. A PDS Endoloop was then placed throughout the cystic duct stump. The cystic artery divided and sealed with the Harmonic scissors. The gallbladder was then removed from the liver bed using Harmonic scissors. The gallbladder was then extracted through the epigastric port site. Operative field was checked for any bleeding spots and Harmonic scissors was used to coagulate the liver bed. The abdomen was irrigated. The trocars were removed. The skin was closed using interrupted 3-0 Vicryl suture. Dermabond dressing were applied. The patient tolerated the procedure well.
[2022-10-14] MEDS ORDERED: diphenhydrAMINE 50 MG/ML 1 ML VIAL IVP ONE (12:25)
[2022-10-14] MEDS: KETOROLAC 15 MG/ML 1 ML VIAL IVP SCH ×3 (15:07→23:16)
[2022-10-15] MEDS: SODIUM CHLORIDE 0.9% 1,000 ML IV SCH (04:04)
[2022-10-15 04:18] VITALS: RESP 16
[2022-10-15] MEDS: KETOROLAC 15 MG/ML 1 ML VIAL IVP SCH ×2 (05:53→11:12)
[2022-10-15 07:28] VITALS: BP 131/68; PULSE 77; TEMP 98.6
[2022-10-15] MEDS: PIPERACILLIN-TAZOBACTAM 3.375 GM in SODIUM CHLORIDE 0.9% 100 ML IVPB SCH (07:44)
[2022-10-15] MEDS ORDERED: ENOXAPARIN 40 MG/0.4 ML SYRINGE SQ SCH (09:00)
[2022-10-15] MEDS: HYDROmorphone 1 MG/ML 1 ML SYRINGE IVP PRN (11:19)
[2022-10-15 11:38] LABS: Appearance,Urine Clear (Clear); Bilirubin,Urine Negative (Negative); Blood,Urine Negative (Negative); Color,Urine Light Yellow; Glucose,Urine (UA) Negative (Negative); Ketones,Urine Negative (Negative); Leukocyte Esterase,Urine Negative (Negative); Nitrite,Urine Negative (Negative); Protein,Urine Negative (Negative); Specific Gravity,Urine 1.018 (1.001-1.035); Urobilinogen,Urine <2.0 mg/dL (<2.0)
[2022-10-15 15:31] LABS: Basophils % (A) 1 %; Eosinophils # (A) 0.3 k/uL (0-0.7); Eosinophils % (A) 4 %; HCT 38.7 % (34.0-46.0); HGB 12.6 gm/dL (11.4-16.0); Lymphocytes # (A) 3.1 k/uL (1.0-4.8); Lymphocytes % (A) 38 %; MCH 31.8 pg (25.0-35.0); MCHC 32.6 g/dL (31.0-37.0); MCV 97.6 fL (80.0-100.0); Mean Platelet Volume 8.9; Monocytes # (A) 0.4 k/uL (0-1.0); Monocytes % (A) 4 %; Neutrophils # (A) 4.1 k/uL (1.3-7.7); Neutrophils % (A) 51 %; Platelet Count 183 k/uL (150-450); RBC 3.97 m/uL (3.80-5.40); RDW 13.1 % (11.5-15.5); WBC 8.1 k/uL (3.8-10.6)
[2022-10-15 15:48] LABS: African American GFR (CKD) 89 (>60 ml/min/1.73 sqM); Anion Gap 5 mmol/L; Blood Urea Nitrogen 15 mg/dL (7-17); Calcium 8.6 mg/dL (8.4-10.2); Carbon Dioxide 27 mmol/L (22-30); Chloride 105 mmol/L (98-107); Glucose 94 mg/dL (74-99); Non-African American GFR(CKD) 77 (>60 ml/min/1.73 sqM); Potassium 4.1 mmol/L (3.5-5.1); Sodium 137 mmol/L (137-145)
--- NOTE | 2022-10-23 08:02 | P.DS ---
Providers Date of admission: 10/13/22 23:50 Expected date of discharge: 10/15/22 Attending physician: Stevie Burr Consults: 10/14/22 14:56 Consult Physician Routine Consulting Provider: Ida Fulton Consult Reason/Comments: MEDICAL MANAGEMENT Do you want consulting provider notified?: Yes Primary care physician: [facility] Course: This is a 57-year-old female was in the hospital with complaints of right upper quadrant pain. Patient's found have cholecystitis. Patient underwent laparoscopic cholecystectomy. Please see hospital chart for details. Procedures: Periscopic cholecystectomy Patient Condition at Discharge: Fair Plan - Discharge Summary Discharge Rx Participant: Yes New Discharge Prescriptions: New Docusate [Colace] 100 mg PO BID #20 capsule Ibuprofen [Motrin] 600 mg PO Q6HR PRN #40 tab PRN Reason: Pain oxyCODONE HCL [OxyIR] 5 mg PO Q6H PRN 3 Days #10 tab PRN Reason: Pain Acetaminophen Tab [Tylenol] 650 mg PO Q6H #30 tab No Action Albuterol Inhaler [Ventolin Hfa Inhaler] 2 puff INHALATION RT-Q4H PRN PRN Reason: Shortness Of Breath Aspirin EC [Ecotrin Low Dose] 81 mg PO HS Hydrocodone/Acetaminophen [[place] 10-325] 1 tab PO Q4H PRN PRN Reason: Pain Loratadine [Claritin] 10 mg PO DAILY Naloxone HCl [Narcan] 1 spray NASAL ONCE PRN PRN Reason: OVERDOSE rOPINIRole HCL [Requip] 4 mg PO HS lisinopriL 40 mg PO DAILY Diclofenac Sodium [Voltaren] 75 mg PO BID FLUoxetine HCL [PROzac] 40 mg PO DAILY hydroCHLOROthiazide 25 mg PO DAILY Pantoprazole Sodium [Protonix] 40 mg PO DAILY Varenicline [Chantix Starter Pack] 0.5 mg PO DIRECTED Budesonide-Formot 160-4.5 Mcg [Symbicort 160-4.5 Mcg Inhaler] 2 puff INHALATION RT-BID amLODIPine [Norvasc] 10 mg PO DAILY ARIPiprazole [Abilify] 2 mg PO HS Gabapentin 600 mg PO TID methocarbamoL [Robaxin] 500 mg PO DAILY Nortriptyline HCl [Pamelor] 75 mg PO HS tiZANidine [Zanaflex] 4 mg PO HS Discharge Medication List Albuterol Inhaler [Ventolin Hfa Inhaler] 2 puff INHALATION RT-Q4H PRN 08/06/17 [History] Aspirin EC [Ecotrin Low Dose] 81 mg PO HS 08/06/17 [History] Hydrocodone/Acetaminophen [[place] 10-325] 1 tab PO Q4H PRN 08/06/17 [History] Loratadine [Claritin] 10 mg PO DAILY 08/06/17 [History] Naloxone HCl [Narcan] 1 spray NASAL ONCE PRN 08/06/17 [History] rOPINIRole HCL [Requip] 4 mg PO HS 08/06/17 [History] Budesonide-Formot 160-4.5 Mcg [Symbicort 160-4.5 Mcg Inhaler] 2 puff INHALATION RT-BID 08/07/22 [History] amLODIPine [Norvasc] 10 mg PO DAILY 08/07/22 [History] lisinopriL 40 mg PO DAILY 08/07/22 [History] ARIPiprazole [Abilify] 2 mg PO HS 10/14/22 [History] Diclofenac Sodium [Voltaren] 75 mg PO BID 10/14/22 [History] FLUoxetine HCL [PROzac] 40 mg PO DAILY 10/14/22 [History] Gabapentin 600 mg PO TID 10/14/22 [History] Nortriptyline HCl [Pamelor] 75 mg PO HS 10/14/22 [History] Pantoprazole Sodium [Protonix] 40 mg PO DAILY 10/14/22 [History] Varenicline [Chantix Starter Pack] 0.5 mg PO DIRECTED 10/14/22 [History] hydroCHLOROthiazide 25 mg PO DAILY 10/14/22 [History] methocarbamoL [Robaxin] 500 mg PO DAILY 10/14/22 [History] tiZANidine [Zanaflex] 4 mg PO HS 10/14/22 [History] Acetaminophen Tab [Tylenol] 650 mg PO Q6H #30 tab 10/15/22 [Rx] Docusate [Colace] 100 mg PO BID #20 capsule 10/15/22 [Rx] Ibuprofen [Motrin] 600 mg PO Q6HR PRN #40 tab 10/15/22 [Rx] oxyCODONE HCL [OxyIR] 5 mg PO Q6H PRN 3 Days #10 tab 10/15/22 [Rx] Follow up Appointment(s)/Referral(s): Mj Moreira DO [Primary Care Provider] - 1-2 days Stevie Burr MD [STAFF PHYSICIAN] - 1 Week Patient Instructions/Handouts: *Surgery [facility] - Laparoscopic Cholecystectomy Discharge Instructions Discharge Disposition: HOME SELF-CARE
== END 2022-10-15 14:55 | disposition home or self-care (01) ==
LOC: EC 18:59 → 6NMEDSUR 23:50
PROVIDERS: ADMIT Surgery; ATTEND Surgery
DX: K80.12 Calculus of gallbladder with acute and chronic cholecystitis without obstruction (principal); I10 Essential (primary) hypertension; F31.9 Bipolar disorder, unspecified; J43.9 Emphysema, unspecified; D64.9 Anemia, unspecified; G43.909 Migraine, unspecified, not intractable, without status migrainosus; G89.29 Other chronic pain; M54.9 Dorsalgia, unspecified; J30.2 Other seasonal allergic rhinitis; F17.200 Nicotine dependence, unspecified, uncomplicated; Z96.612 Presence of left artificial shoulder joint; E78.5 Hyperlipidemia, unspecified; M79.7 Fibromyalgia; M19.90 Unspecified osteoarthritis, unspecified site; Z86.73 Personal history of transient ischemic attack (TIA), and cerebral infarction without residual deficits; Z79.82 Long term (current) use of aspirin; Z79.899 Other long term (current) drug therapy; Z88.8 Allergy status to other drugs, medicaments and biological substances; Z88.5 Allergy status to narcotic agent; Z79.1 Long term (current) use of non-steroidal anti-inflammatories (NSAID); Z79.51 Long term (current) use of inhaled steroids; Z81.1 Family history of alcohol abuse and dependence; Z82.61 Family history of arthritis
CPT/HCPCS: 96372; 96376; 96374; 96375; 99285; 36415; 93005; 88304; 80053; 80048; 82150; 83605; 83690; 84484; 85025 ×2; 85610; 85730; 81003; 87040; 76705; 47562; G0378 ×2; J2543 ×2; J2250; J0330; J2270; J1200; J1644; J2710; J2405; J1650; J3010; J1170 ×2; J1885 ×2; J2704; J2001; J0665

== ENCOUNTER 2022-11-12 08:04 | Day surgery (SDC) | payer MEDICARE, OTHER ==
[2022-11-10 15:07] VITALS: BMI 32.7
[~2022-11-12 08:04] MED LIST changes: +ACETAMINOPHEN TAB 500 MG TAB PO PRN; +DEXAMETHASONE SOD PHOSPHATE 4 MG/ML 1 ML VIAL IV ONE; +HEPARIN SODIUM,PORCINE/PF 5,000 UNIT/0.5 ML SYRINGE SQ PRN; +ONDANSETRON 4 MG/2 ML VIAL IVP ONE; +droPERidol 5 MG/2 ML VIAL IVP ONE; +fentaNYL (PF) 50 MCG/ML 2 ML AMP IV PRN
[2022-11-12 08:46] VITALS: TEMP 97.7
[2022-11-12] MEDS ORDERED: MIDAZOLAM 2 MG/2 ML VIAL IVP ONE (09:08)
[2022-11-12] MEDS ORDERED: fentaNYL (PF) 50 MCG/1 ML VIAL IVP ONE (09:09)
--- NOTE | 2022-11-12 09:38 | P.ANPRN ---
Procedure Note - Anesthesia - Nerve Block Performed Bilateral Erector Spinae Single Time Out Performed: Yes Date of Procedure: 11/12/22 Procedure Start Time: : Procedure Stop Time: :15 Location of Patient: PreOp Indication: Acute Post-Operative Pain, Requested by Surgeon Specifically requested for management of pain by DrSia: Stevie Burr Sedation Type: Sedate with meaningful contact maintained Preparation: Sterile Prep Position: Prone Needle Types: Pajunk Needle Gauge: 21 Ultrasound used to visualize needle placement: Yes Ultrasound used to observe medication spread: Yes Injectate: 0.5% Ropivacaine (see comment for volume) (15 ml +15 ml NS +4 mg dexamethasone per side) Blood Aspirated: No Pain Paresthesia on Injection Noted: No Resistance on Injection: Normal Image Stored and Saved: Yes Events: Uneventful and Well Tolerated
--- NOTE | 2022-11-12 10:07 | P.GSHP ---
History of Present Illness H&P Date: 11/12/22 Chief Complaint: Incisional hernia This a 57-year-old female who presents today for laparoscopic robotic system repair of incisional hernia. Patient has developed an incisional hernia at her umbilicus from previous laparoscopic surgery. She presents today for repair. Past Medical History Past Medical History: Asthma, Blood Disorder, Chest Pain / Angina, COPD, CVA/TIA, Fibromyalgia, GERD/Reflux, Hyperlipidemia, Hypertension, Muscu loskeletal Disorder, Osteoarthritis (OA), Sleep Apnea/CPAP/BIPAP Additional Past Medical History / Comment(s): Migraines, irregular heart beat - skips beats, hx TIA X3, last 10 yrs ago, seasonal allergies, hx anemia took iron supplements, EMPHYSEMA, polycystic ovaries, chronic back pain, vertigo, hx cellulitis, DDD, DJD, CPAP use. History of Any Multi-Drug Resistant Organisms: None Reported Past Surgical History: Section, Cholecystectomy, Joint Replacement, Orthopedic Surgery Additional Past Surgical History / Comment(s): Section X5, right knee arthroscopy, right knee meniscus repair, left knee tendon/ligament repair, cervical fusion, left shoulder replacement. Past Anesthesia/Blood Transfusion Reactions: No Reported Reaction Additional Past Anesthesia/Blood Transfusion Reaction / Comment(s): Never received blood transfusion. Vertigo. Past Psychological History: Bipolar, Depression Smoking Status: Current every day smoker Past Alcohol Use History: Rare Additional Past Alcohol Use History / Comment(s): Started smoking at age 14, was smoking 2 ppd, down to 1 ppd. Past Drug Use History: Marijuana Additional Drug Use History / Comment(s): Hx Marijuana use, none in one year. - Past Family History Mother Family Medical History: Rheumatoid Arthritis (RA) Additional Family Medical History / Comment(s): Alcoholic- has since . Father Family Medical History: Cancer Additional Family Medical History / Comment(s): Alcoholic. Medications and Allergies Home Medications Medication Instructions Recorded Confirmed Type Albuterol Inhaler [Ventolin Hfa 2 puff INHALATION RT-Q4H PRN 08/06/17 11/10/22 History Inhaler] Aspirin EC [Ecotrin Low Dose] 81 mg PO HS 08/06/17 11/10/22 History Hydrocodone/Acetaminophen [[place] 1 tab PO Q4H PRN 08/06/17 11/10/22 History 10-325] Loratadine [Claritin] 10 mg PO QAM 08/06/17 11/10/22 History Naloxone HCl [Narcan] 1 spray NASAL ONCE PRN 08/06/17 11/10/22 History rOPINIRole HCL [Requip] 4 mg PO HS 08/06/17 11/10/22 History Budesonide-Formot 160-4.5 Mcg 2 puff INHALATION BID 08/07/22 11/10/22 History [Symbicort 160-4.5 Mcg Inhaler] amLODIPine [Norvasc] 10 mg PO QAM 08/07/22 11/10/22 History lisinopriL 40 mg PO QAM 08/07/22 11/10/22 History ARIPiprazole [Abilify] 2 mg PO HS 10/14/22 11/10/22 History Diclofenac Sodium [Voltaren] 75 mg PO BID 10/14/22 11/10/22 History FLUoxetine HCL [PROzac] 40 mg PO QAM 10/14/22 11/10/22 History Gabapentin 600 mg PO TID 10/14/22 11/10/22 History Nortriptyline HCl [Pamelor] 75 mg PO 10/14/22 11/10/22 History Pantoprazole Sodium [Protonix] 40 mg PO QAM 10/14/22 11/10/22 History Varenicline [Chantix Starter Pack] 0.5 mg PO DIRECTED 10/14/22 11/10/22 History hydroCHLOROthiazide 25 mg PO QAM 10/14/22 11/10/22 History methocarbamoL [Robaxin] 500 mg PO QAM 10/14/22 11/10/22 History tiZANidine [Zanaflex] 4 mg PO 10/14/22 11/10/22 History Azithromycin [Zithromax Z Pack] 1 tab PO DIRECTED 11/10/22 11/10/22 History Docusate [Colace] 100 mg PO BID PRN 11/10/22 11/10/22 History Meclizine [Antivert] 25 mg PO QAM 11/10/22 11/10/22 History Allergies Allergy/AdvReac Type Severity Reaction Status Date / Time codeine Allergy Unknown Verified 11/12/22 08:38 omeprazole [From Prilosec] Allergy Rash/Hives Verified 11/12/22 08:38 Surgical - Exam Vital Signs Temp Pulse Resp BP Pulse Ox 97.7 F 69 16 128/83 98 11/12/22 08:44 11/12/22 08:44 11/12/22 08:44 11/12/22 08:44 11/12/22 08:44 - General well developed, well nourished, no distress - Eyes PERRL - ENT normal pinna - Neck no masses - Respiratory normal expansion - Cardiovascular Rhythm: regular - Abdomen Abdomen: soft, non tender Hernia: incisional (3 cm incisional hernia near her umbilicus) Assessment and Plan Assessment: Incisional hernia. We'll perform laparoscopic robotic-assisted repair.
[2022-11-12] MEDS ORDERED: ROPIVACAINE 5 MG/ML 30 ML VIAL ONE (10:33)
[2022-11-12] MEDS ORDERED: MIDAZOLAM 2 MG/2 ML VIAL ONE (10:33)
[2022-11-12] MEDS ORDERED: SODIUM CHLORIDE 0.9% (PF) 10 ML VIAL ONE (10:33)
[2022-11-12] MEDS ORDERED: NEOSTIGMINE 1 MG/ML 10 ML VIAL ONE (10:33)
[2022-11-12] MEDS ORDERED: SUCCINYLCHOLINE CHLORIDE 200 MG/10 ML VIAL IV ONE (10:33)
[2022-11-12] MEDS ORDERED: KETAMINE 10 MG/ML 20 ML VIAL ONE (10:33)
[2022-11-12] MEDS ORDERED: PROPOFOL 10 MG/ML 20 ML VIAL IV ONE (10:33)
[2022-11-12] MEDS ORDERED: fentaNYL (PF) 50 MCG/ML 2 ML AMP ONE (10:33)
[2022-11-12] MEDS ORDERED: GLYCOPYRROLATE 0.2 MG/ML 2 ML VIAL ONE (10:33)
[2022-11-12] MEDS ORDERED: LIDOCAINE 2% INJ 20 MG/ML (2 ML VIAL) ONE (10:33)
[2022-11-12] MEDS ORDERED: HYDROmorphone (PF) 1 MG/ML ONE (10:33)
[2022-11-12] MEDS ORDERED: DEXAMETHASONE SOD PHOSPHATE 4 MG/ML 1 ML VIAL ONE (10:33)
[2022-11-12] MEDS ORDERED: ROCURONIUM 10 MG/ML (5 ML VIAL) IV ONE (10:33)
[2022-11-12] MEDS ORDERED: LIDOCAINE 1%-EPI 1:100,000 50 ML VIAL SQ ONE (11:00)
--- NOTE | 2022-11-12 11:46 | P.OP ---
Date of Procedure: 11/12/22 Preoperative Diagnosis: Incarcerated incisional hernia Postoperative Diagnosis: Same Procedure(s) Performed: Laparoscopic robotic-assisted repair of incarcerated incisional hernia Partial omentectomy Transversus abdominis plane block Anesthesia: DAMION Surgeon: Stevie Burr Estimated Blood Loss (ml): 5 Pathology: other (Omentum/hernia sac) Condition: stable Disposition: PACU Description of Procedure: The patient was placed on the operating table in the supine position. He received general anesthesia. His abdomen was prepped and draped usual fashion. Using a 5 mm optical trocar under direct visualization the peritoneal cavity was entered in the left upper quadrant. The abdomen was then insufflated. The laparoscope was placed back into the perineal cavity. Next a 8 mm robotic trocar was placed in the left lower quadrant and a 12 mm robotic trocar was placed in the left lateral position. The original 5 mm trocar was exchanged for a 8 mm robotic trocar. A four-quadrant transverse) plug was performed with 1% local Xylocaine. The patient's placed in the left side up position. And the patient was docked to the robot. The incisional hernia was visualized. Using hook cautery the peritoneum over the incisional hernia was excised. Incarcerated omentum and hernia sac was dissected free sent to pathology. The fascial opening was repaired using 0V LOC suture. Next a piece of 11 cm round ventral light ST mesh was placed into the. Cavity and secured with 2 OV lock suture. The patient was undocked the robot. The needles were retrieved. The fascia of the 12 mm trocar site was closed with 0 Ethibond suture. Skin was closed interrupted 3-0 Monocryl suture. Dermabond dressings was applied. Patient tolerated procedure well and was sent to recovery room stable condition.
[2022-11-12] MEDS ORDERED: LACTATED RINGERS 1,000 ML IV ONE (11:47)
[2022-11-12] MEDS ORDERED: HYDROmorphone 0.5 MG/0.5 ML SYRINGE IVP ONE ×2 (12:11→12:34)
[2022-11-12 13:05] VITALS: RESP 16
[2022-11-12 13:28] VITALS: BP 143/84; PULSE 84
== END 2022-11-12 13:37 | disposition home or self-care (01) ==
LOC: OR 08:04
PROVIDERS: ATTEND Surgery
DX: K43.0 Incisional hernia with obstruction, without gangrene (principal); E78.5 Hyperlipidemia, unspecified; E28.2 Polycystic ovarian syndrome; I10 Essential (primary) hypertension; J44.9 Chronic obstructive pulmonary disease, unspecified; K21.9 Gastro-esophageal reflux disease without esophagitis; M19.90 Unspecified osteoarthritis, unspecified site; M79.7 Fibromyalgia; F17.210 Nicotine dependence, cigarettes, uncomplicated; F12.90 Cannabis use, unspecified, uncomplicated; Z86.73 Personal history of transient ischemic attack (TIA), and cerebral infarction without residual deficits; Z79.82 Long term (current) use of aspirin; Z79.51 Long term (current) use of inhaled steroids; Z90.49 Acquired absence of other specified parts of digestive tract; Z79.899 Other long term (current) drug therapy
CPT/HCPCS: 49592; S2900; 64999; 88305

== ENCOUNTER 2023-07-22 21:38 | Emergency (ER) | payer MEDICARE, OTHER ==
[2023-07-22 21:57] VITALS: TEMP 98.6
[2023-07-22 22:11] LABS: Appearance,Urine Clear (Clear); Bilirubin,Urine Negative (Negative); Blood,Urine Trace (Negative); Color,Urine Colorless; Glucose,Urine (UA) Negative (Negative); Ketones,Urine Negative (Negative); Leukocyte Esterase,Urine Negative (Negative); Nitrite,Urine Negative (Negative); Protein,Urine Negative (Negative); RBC,Urine 3 /hpf (0-5); Specific Gravity,Urine 1.017 (1.001-1.035); Squamous Epithelial Cell,Urine <1 /hpf (0-4); Urobilinogen,Urine <2.0 mg/dL (<2.0); WBC,Urine <1 /hpf (0-5)
--- NOTE | 2023-07-22 22:14 | XR ---
EXAMINATION TYPE: XR KUB DATE OF EXAM: 07/22/2023 COMPARISON: None INDICATION: Abdomen pain TECHNIQUE: Single view abdomen FINDINGS: Nonspecific bowel gas is present. Some nondilated air-filled small bowel loops are within the mid abd omen. Colonic bowel gas is present. Psoas margins are normal. No organomegaly is present. IMPRESSION: 1. Nonspecific abdomen
--- NOTE | 2023-07-22 22:15 | XR ---
EXAMINATION TYPE: XR chest 2V DATE OF EXAM: 07/22/2023 COMPARISON: 12/22/2020 INDICATION: Chest pain TECHNIQUE: Frontal and lateral views of the chest are obtained. FINDINGS: The heart size is normal. The pulmonary vasculature is normal. The lungs are clear. Left shoulder prosthesis is present. IMPRESSION: 1. No acute pulmonary process.
--- NOTE | 2023-07-22 23:20 | ED ---
General Adult HPI - General Chief complaint: Abdominal Pain Stated complaint: Heart Palpitations, Chest Pain, Upper Back Pain, Source: patient Limitations: no limitations - History of Present Illness Initial comments: Melita is a 58yo F who presents to the ER via private vehicle for evaluation of sided flank pain. Patient reports that for the past 3 to 4 weeks she has had pleuritic pain in the left posterior lung. Pain is worse with deep inspiration or laying flat. Patient states she feels short of breath like she cannot take a deep breath or catch her breath. Patient states she has had pleurisy in the past but this is different as she is feeling more short of breath. She has no history of cardiac disease or coronary artery disease, no history of DVT or PE. No family history of clotting disorder. She is not on any exogenous estrogen however she is a smoker. - Related Data Home Medications Medication Instructions Recorded Confirmed Albuterol Inhaler [Ventolin Hfa 2 puff INHALATION RT-Q4H PRN 08/06/17 11/10/22 Inhaler] Aspirin EC [Ecotrin Low Dose] 81 mg PO HS 08/06/17 11/10/22 Hydrocodone/Acetaminophen [[place] 1 tab PO Q4H PRN 08/06/17 11/10/22 10-325] Loratadine [Claritin] 10 mg PO QAM 08/06/17 11/10/22 Naloxone HCl [Narcan] 1 spray NASAL ONCE PRN 08/06/17 11/10/22 rOPINIRole HCL [Requip] 4 mg PO HS 08/06/17 11/10/22 Budesonide-Formot 160-4.5 Mcg 2 puff INHALATION BID 08/07/22 11/10/22 [Symbicort 160-4.5 Mcg Inhaler] amLODIPine [Norvasc] 10 mg PO QAM 08/07/22 11/10/22 lisinopriL 40 mg PO QAM 08/07/22 11/10/22 ARIPiprazole [Abilify] 2 mg PO HS 10/14/22 11/10/22 Diclofenac Sodium [Voltaren] 75 mg PO BID 10/14/22 11/10/22 FLUoxetine HCL [PROzac] 40 mg PO QAM 10/14/22 11/10/22 Gabapentin 600 mg PO TID 10/14/22 11/10/22 Nortriptyline HCl [Pamelor] 75 mg PO HS 10/14/22 11/10/22 Pantoprazole Sodium [Protonix] 40 mg PO QAM 10/14/22 11/10/22 Varenicline [Chantix Starter Pack] 0.5 mg PO DIRECTED 10/14/22 11/10/22 hydroCHLOROthiazide 25 mg PO QAM 10/14/22 11/10/22 methocarbamoL [Robaxin] 500 mg PO QAM 10/14/22 11/10/22 tiZANidine [Zanaflex] 4 mg PO HS 10/14/22 11/10/22 Azithromycin [Zithromax Z Pack] 1 tab PO DIRECTED 11/10/22 11/10/22 Docusate [Colace] 100 mg PO BID PRN 11/10/22 11/10/22 Meclizine [Antivert] 25 mg PO QAM 11/10/22 11/10/22 Previous Rx's Medication Instructions Recorded Acetaminophen Tab [Tylenol] 650 mg PO Q6H #30 tab 11/12/22 Docusate [Colace] 100 mg PO BID #20 capsule 11/12/22 Ibuprofen [Motrin] 600 mg PO Q6HR PRN #40 tab 11/12/22 oxyCODONE HCL [OxyIR] 5 mg PO Q6H PRN 3 Days #10 tab 11/12/22 Allergies Allergy/AdvReac Type Severity Reaction Status Date / Time codeine Allergy Unknown Verified 07/22/23 21:57 omeprazole [From Prilosec] Allergy Rash/Hives Verified 07/22/23 21:57 Review of Systems ROS Statement: Those systems with pertinent positive or pertinent negative responses have been documented in the HPI. ROS Other: All systems not noted in ROS Statement are negative. Past Medical History Past Medical History: Asthma, Blood Disorder, Chest Pain / Angina, COPD, CVA/TIA, Fibromyalgia, GERD/Reflux, Hyperlipidemia, Hypertension, Musculoskeletal Disorder, Osteoarthritis (OA), Sleep Apnea/CPAP/BIPAP Additional Past Medical History / Comment(s): Migraines, irregular heart beat - skips beats, hx TIA X3, last 10 yrs ago, seasonal allergies, hx anemia took iron supplements, EMPHYSEMA, polycystic ovaries, chronic back pain, vertigo, hx cellulitis, DDD, DJD, CPAP use. History of Any Multi-Drug Resistant Organisms: None Reported Past Surgical History: Section, Cholecystectomy, Joint Replacement, Orthopedic Surgery Additional Past Surgical History / Comment(s): Section X5, right knee arthroscopy, right knee meniscus repair, left knee tendon/ligament repair, cervical fusion, left shoulder replacement. Past Anesthesia/Blood Transfusion Reactions: No Reported Reaction Additional Past Anesthesia/Blood Transfusion Reaction / Comment(s): Never received blood transfusion. Vertigo. Past Psychological History: Bipolar, Depression Smoking Status: Current every day smoker Past Alcohol Use History: Occasional Past Drug Use History: Marijuana - Past Family History Mother Family Medical History: Rheumatoid Arthritis (RA) Additional Family Medical History / Comment(s): Alcoholic- has since . Father Family Medical History: Cancer Additional Family Medical History / Comment(s): Alcoholic. General Exam - General Exam Comments Initial Comments: Physical Exam GENERAL: Patient is well-developed and well-nourished. Patient is nontoxic and well- hydrated and is in no distress. HENT: Normocephalic, Atraumatic. EYES: PERRL, EOMI PULMONARY: Unlabored respirations. No audible rales rhonchi or wheezing was noted CARDIOVASCULAR: There is a regular rate and rhythm without any murmurs gallops or rubs ABDOMEN: Soft and nontender with normal bowel sounds. SKIN: Skin is clear with no lesions or rashes and otherwise unremarkable. : Deferred NEUROLOGIC: Patient is alert and oriented x3. Moving all extremities spontaneously MUSCULOSKELETAL: Normal extremities with adequate strength and full range of motion. No lower extremity swelling or edema. No calf tenderness. PSYCHIATRIC: Normal psychiatric evaluation. Limitations: no limitations Course Vital Signs 07/22/23 07/23/23 21:43 00:25 Temperature 98.6 F Pulse Rate 83 72 Respiratory 20 18 Rate Blood Pressure 145/73 119/69 O2 Sat by Pulse 96 95 Oximetry EKG Findings - EKG Comments: EKG Findings:: Obtained due to complaint of palpitations EKG obtained at 2327 rate is 71 rhythm is sinus normal axis, normal intervals, HI 158 QRS 77 QTc 448, no acute ST elevations or depressions no evidence of acute ischemia or infarction Medical Decision Making - Medical Decision Making Was pt. sent in by a medical professional or institution (, PA, THREAD DRESSER, urgent care, hospital, or intermediate...) When possible be specific @ -No Did you speak to anyone other than the patient for history (EMS, parent, family, police, friend...)? What history was obtained from this source @ -No Did you review nursing and triage notes (agree or disagree)? Why? @ -I reviewed and agree with nursing and triage notes Were old charts reviewed (outside hosp., previous admission, EMS record, old EKG, old radiological studies, urgent care reports/EKG's, intermediate records)? Report findings @ -No old charts were reviewed Differential Diagnosis (chest pain, altered mental status, abdominal pain women, abdominal pain men, vaginal bleeding, weakness, fever, dyspnea, syncope, headache, dizziness, GI bleed, back pain, seizure, CVA, palpatations, mental health)? @ -Not applicable EKG interpreted by me (3pts min.). @ -As above X-rays interpreted by me (1pt min.). @ -S x-ray with no acute process CT interpreted by me (1pt min.). @ -None done U/S interpreted by me (1pt. min.). @ -None done What testing was considered but not performed or refused? (CT, X-rays, U/S, labs)? Why? @ -CT PE study was considered but D-dimer is not elevated therefore it was not performed What meds were considered but not given or refused? Why? @ -None Did you discuss the management of the patient with other professionals (professionals i.e. , PA, THREAD DRESSER, lab, RT, psych nurse, social media sr strategy manager, plasma processing centrifuge operator, teacher, duty officer, keycase assembler)? Give summary @ -No Was smoking cessation discussed for >3mins.? @ -No Was critical care preformed (if so, how long)? @ -No Were there social determinants of health that impacted care today? How? (Homelessness, low income, unemployed, alcoholism, drug addiction, transportatio n, low edu. Level, literacy, decrease access to med. care, prison, rehab)? @ -No Was there de-escalation of care discussed even if they declined (Discuss DNR or withdrawal of care, Hospice)? DNR status @ -No What co-morbidities impacted this encounter? (DM, HTN, Smoking, COPD, CAD, Cancer, CVA, ARF, Chemo, Hep., AIDS, mental health diagnosis, sleep apnea, morbid obesity)? @ -None Was patient admitted / discharged? Hospital course, mention meds given and route, prescriptions, significant lab abnormalities, going to OR and other pertinent info. @ -Discharged Evaluated patient reports 2 to 4 weeks of left flank pain seems to be positional worse with laying down or deep breathing signs were unremarkable Physical exam was unremarkable Labs are reviewed there is no elevated troponin or D-dimer Chest x-ray shows no acute findings considering the negative D-dimer we will not proceed with a CT study I suspect the patient is suffering from pleurisy I recommend supportive care anti-inflammatories. Upon reevaluation the patient was sleeping comfortably. I woke the patient to discuss her results she again began complaining about pain I advised that she should treat this with anti-inflammatories and if it worsens or has associated shortness of breath or any new or concerning symptoms she can return to the ER at any time. Patient was agreeable to this and was discharged home in stable condition Undiagnosed new problem with uncertain prognosis? @ -No Drug Therapy requiring intensive monitoring for toxicity (Heparin, Nitro, Insulin, Cardizem)? @ -No Were any procedures done? @ -No Diagnosis/symptom? @ -Pleuritic chest pain Acute, or Chronic, or Acute on Chronic? @ -Acute Uncomplicated (without systemic symptoms) or Complicated (systemic symptoms)? @ -Default Side effects of treatment? @ -No Exacerbation, Progression, or Severe Exacerbation? @ -No Poses a threat to life or bodily function? How? (Chest pain, [place], [place], pneumonia, PE, COPD, DKA, ARF, appy, cholecystitis, CVA, Diverticulitis, Homicidal, Suicidal, threat to staff... and all critical care pts) @ -Unlikely - Lab Data Result diagrams: 07/22/23 23:46 07/22/23 23:46 Lab Results 07/22/23 07/22/23 07/22/23 Range/Units 21:56 23:46 23:46 WBC 11.0 H (3.8-10.6) k/uL RBC 4.20 (3.80-5.40) m/uL Hgb 13.2 (11.4-16.0) gm/dL Hct 39.8 (34.0-46.0) % MCV 94.7 (80.0-100.0) fL MCH 31.4 (25.0-35.0) pg MCHC 33.1 (31.0-37.0) g/dL RDW 12.9 (11.5-15.5) % Plt Count 205 (150-450) k/uL MPV 8.5 Neutrophils % 57 % Lymphocytes % 33 % Monocytes % 4 % Eosinophils % 5 % Basophils % 1 % Neutrophils # 6.2 (1.3-7.7) k/uL Lymphocytes # 3.7 (1.0-4.8) k/uL Monocytes # 0.4 (0-1.0) k/uL Eosinophils # 0.5 (0-0.7) k/uL Basophils # 0.1 (0-0.2) k/uL PT 9.7 L (10.0-12.5) sec INR 0.9 (<1.2) APTT 20.8 L (22.0-30.0) sec D-Dimer 0.45 (<0.60) mg/L FEU Sodium (137-145) mmol/L Potassium (3.5-5.1) mmol/L Chloride (98-107) mmol/L Carbon Dioxide (22-30) mmol/L Anion Gap mmol/L BUN (7-17) mg/dL Creatinine (0.52-1.04) mg/dL Est GFR (CKD-EPI)AfAm (>60 ml/min/1.73 sqM) Est GFR (CKD-EPI)NonAf (>60 ml/min/1.73 sqM) Glucose (74-99) mg/dL Calcium (8.4-10.2) mg/dL Total Bilirubin (0.2-1.3) mg/dL AST (14-36) U/L ALT (4-34) U/L Alkaline Phosphatase (38-126) U/L Troponin I (0.000-0.034) ng/mL NT-Pro-B Natriuret Pep pg/mL Total Protein (6.3-8.2) g/dL Albumin (3.5-5.0) g/dL Urine Color Colorless Urine Appearance Clear (Clear) Urine pH 6.0 (5.0-8.0) Ur Specific [place] 1.017 (1.001-1.035) Urine Protein Negative (Negative) Urine Glucose (UA) Negative (Negative) Urine Ketones Negative (Negative) Urine Blood Trace H (Negative) Urine Nitrite Negative (Negative) Urine Bilirubin Negative (Negative) Urine Urobilinogen <2.0 (<2.0) mg/dL Ur Leukocyte Esterase Negative (Negative) Urine RBC 3 (0-5) /hpf Urine WBC <1 (0-5) /hpf Ur Squamous Epith Cells <1 (0-4) /hpf 07/22/23 07/22/23 Range/Units 23:46 23:46 WBC (3.8-10.6) k/uL RBC (3.80-5.40) m/uL Hgb (11.4-16.0) gm/dL Hct (34.0-46.0) % MCV (80.0-100.0) fL MCH (25.0-35.0) pg MCHC (31.0-37.0) g/dL RDW (11.5-15.5) % Plt Count (150-450) k/uL MPV Neutrophils % % Lymphocytes % % Monocytes % % Eosinophils % % Basophils % % Neutrophils # (1.3-7.7) k/uL Lymphocytes # (1.0-4.8) k/uL Monocytes # (0-1.0) k/uL Eosinophils # (0-0.7) k/uL Basophils # (0-0.2) k/uL PT (10.0-12.5) sec INR (<1.2) APTT (22.0-30.0) sec D-Dimer (<0.60) mg/L FEU Sodium 137 (137-145) mmol/L Potassium 3.1 L (3.5-5.1) mmol/L Chloride 106 (98-107) mmol/L Carbon Dioxide 24 (22-30) mmol/L Anion Gap 7 mmol/L BUN 21 H (7-17) mg/dL Creatinine 0.98 (0.52-1.04) mg/dL Est GFR (CKD-EPI)AfAm 74 (>60 ml/min/1.73 sqM) Est GFR (CKD-EPI)NonAf 64 (>60 ml/min/1.73 sqM) Glucose 108 H (74-99) mg/dL Calcium 8.9 (8.4-10.2) mg/dL Total Bilirubin 0.5 (0.2-1.3) mg/dL AST 23 (14-36) U/L ALT 18 (4-34) U/L Alkaline Phosphatase 90 (38-126) U/L Troponin I <0.012 (0.000-0.034) ng/mL NT-Pro-B Natriuret Pep 51 pg/mL Total Protein 6.6 (6.3-8.2) g/dL Albumin 3.9 (3.5-5.0) g/dL Urine Color Urine Appearance (Clear) Urine pH (5.0-8.0) Ur Specific [place] (1.001-1.035) Urine Protein (Negative) Urine Glucose (UA) (Negative) Urine Ketones (Negative) Urine Blood (Negative) Urine Nitrite (Negative) Urine Bilirubin (Negative) Urine Urobilinogen (<2.0) mg/dL Ur Leukocyte Esterase (Negative) Urine RBC (0-5) /hpf Urine WBC (0-5) /hpf Ur Squamous Epith Cells (0-4) /hpf Disposition Clinical Impression: Pleuritic chest pain Disposition: HOME SELF-CARE Condition: Stable Instructions (If sedation given, give patient instructions): Pleurisy (DC) Is patient prescribed a controlled substance at d/c from ED?: No Referrals: Mj Moreira DO [Primary Care Provider] - 1-2 days
[2023-07-22 23:55] LABS: Basophils # (A) 0.1 k/uL (0-0.2); Basophils % (A) 1 %; Eosinophils # (A) 0.5 k/uL (0-0.7); Eosinophils % (A) 5 %; HCT 39.8 % (34.0-46.0); HGB 13.2 gm/dL (11.4-16.0); Lymphocytes # (A) 3.7 k/uL (1.0-4.8); Lymphocytes % (A) 33 %; MCH 31.4 pg (25.0-35.0); MCHC 33.1 g/dL (31.0-37.0); MCV 94.7 fL (80.0-100.0); Mean Platelet Volume 8.5; Monocytes # (A) 0.4 k/uL (0-1.0); Monocytes % (A) 4 %; Neutrophils # (A) 6.2 k/uL (1.3-7.7); Neutrophils % (A) 57 %; Platelet Count 205 k/uL (150-450); RDW 12.9 % (11.5-15.5)
[2023-07-23 00:06] LABS: ALT 18 U/L (4-34); AST 23 U/L (14-36); African American GFR (CKD) 74 (>60 ml/min/1.73 sqM); Albumin 3.9 g/dL (3.5-5.0); Alkaline Phosphatase 90 U/L (38-126); Anion Gap 7 mmol/L; Blood Urea Nitrogen 21 mg/dL (7-17); Calcium 8.9 mg/dL (8.4-10.2); Carbon Dioxide 24 mmol/L (22-30); Chloride 106 mmol/L (98-107); Glucose 108 mg/dL (74-99); Non-African American GFR(CKD) 64 (>60 ml/min/1.73 sqM); Potassium 3.1 mmol/L (3.5-5.1); Sodium 137 mmol/L (137-145); Total Bilirubin 0.5 mg/dL (0.2-1.3); Total Protein 6.6 g/dL (6.3-8.2)
[2023-07-23 00:14] LABS: NT-Pro-B-Type Natriuretic Pept 51 pg/mL
[2023-07-23 00:20] LABS: INR 0.9 (<1.2); Prothrombin Time 9.7 sec (10.0-12.5)
[2023-07-23 00:29] LABS: Partial Thromboplastin Time 20.8 sec (22.0-30.0)
[2023-07-23 00:33] VITALS: RESP 18
[2023-07-23] MEDS: POTASSIUM CHLORIDE ER 20 MEQ TAB.ER PO STA (02:00)
[2023-07-23 02:25] VITALS: BP 114/69; PULSE 70
== END 2023-07-23 02:11 | disposition home or self-care (01) ==
LOC: EC 21:38
DX: R07.89 Other chest pain (principal); F17.200 Nicotine dependence, unspecified, uncomplicated; Z88.5 Allergy status to narcotic agent; Z88.8 Allergy status to other drugs, medicaments and biological substances; Z90.49 Acquired absence of other specified parts of digestive tract; Z86.73 Personal history of transient ischemic attack (TIA), and cerebral infarction without residual deficits
CPT/HCPCS: 36415; 71046; 74018; 80053; 81001; 83880; 84484; 85025; 85379; 85610; 85730; 93005; 99284

== ENCOUNTER 2023-12-16 12:45 | Emergency (ER) | payer MEDICARE, OTHER ==
--- NOTE | 2023-12-16 13:21 | XR ---
EXAMINATION TYPE: XR chest 2V DATE OF EXAM: 12/16/2023 1:18 PM COMPARISON: Chest radiographs from 07/22/2023 TECHNIQUE: XR chest 2V Frontal and lateral views of the chest. CLINICAL INDICATION:Female, 58 years old with history of cough; FINDINGS: Lungs/Pleura: There is no evidence of pleural effusion, focal consolidation, or pneumothorax. Pulmonary vascularity: Unremarkable. Heart/mediastinum: Cardiomediastinal silhouette is unremarkable. Musculoskeletal: No acute osseous pathology. Left shoulder arthroplasty changes. Cervical fusion hard murillo. IMPRESSION: No acute cardiopulmonary disease/process. [facility], , 12/16/2023 1:19 PM
[2023-12-16] MEDS: methylPREDNISolone SOD SUCCI 125 MG/2 ML VIAL IM ONE (13:42)
[2023-12-16] MEDS: HYDROmorphone 1 MG/ML 1 ML SYRINGE IM STA (13:42)
--- NOTE | 2023-12-16 14:12 | ED ---
URI HPI - General Chief Complaint: Upper Respiratory Infection Stated Complaint: congestion Time Seen by Provider: 12/16/23 12:59 Source: patient, RN notes reviewed Mode of arrival: ambulatory Limitations: no limitations - History of Present Illness Initial Comments: 58-year-old female presents emergency department complaint of sore throat, cough congestion. Patient states symptoms are getting worse. She said increased nasal congestion, shortness of breath. Patient states she is a heavy smoker has COPD. Patient is noticed increasing wheezing. Patient states she also has chronic pain of her hips and waiting for her MRI. Patient denies any new symptoms of her back or hips denies any bowel complaint and cons retention of the anesthesias. - Related Data Home Medications Medication Instructions Recorded Confirmed Albuterol Inhaler [Ventolin Hfa 2 puff INHALATION RT-Q4H PRN 08/06/17 11/10/22 Inhaler] Aspirin EC [Ecotrin Low Dose] 81 mg PO HS 08/06/17 11/10/22 Hydrocodone/Acetaminophen [[place] 1 tab PO Q4H PRN 08/06/17 11/10/22 10-325] Loratadine [Claritin] 10 mg PO QAM 08/06/17 11/10/22 Naloxone HCl [Narcan] 1 spray NASAL ONCE PRN 08/06/17 11/10/22 rOPINIRole HCL [Requip] 4 mg PO HS 08/06/17 11/10/22 Budesonide-Formot 160-4.5 Mcg 2 puff INHALATION BID 08/07/22 11/10/22 [Symbicort 160-4.5 Mcg Inhaler] amLODIPine [Norvasc] 10 mg PO QAM 08/07/22 11/10/22 lisinopriL 40 mg PO QAM 08/07/22 11/10/22 ARIPiprazole [Abilify] 2 mg PO HS 10/14/22 11/10/22 Diclofenac Sodium [Voltaren] 75 mg PO BID 10/14/22 11/10/22 FLUoxetine HCL [PROzac] 40 mg PO QAM 10/14/22 11/10/22 Gabapentin 600 mg PO TID 10/14/22 11/10/22 Nortriptyline HCl [Pamelor] 75 mg PO HS 10/14/22 11/10/22 Pantoprazole Sodium [Protonix] 40 mg PO QAM 10/14/22 11/10/22 Varenicline [Chantix Starter Pack] 0.5 mg PO DIRECTED 10/14/22 11/10/22 hydroCHLOROthiazide 25 mg PO QAM 10/14/22 11/10/22 methocarbamoL [Robaxin] 500 mg PO QAM 10/14/22 11/10/22 tiZANidine [Zanaflex] 4 mg PO HS 10/14/22 11/10/22 Azithromycin [Zithromax Z Pack] 1 tab PO DIRECTED 11/10/22 11/10/22 Docusate [Colace] 100 mg PO BID PRN 11/10/22 11/10/22 Meclizine [Antivert] 25 mg PO QAM 11/10/22 11/10/22 Previous Rx's Medication Instructions Recorded Acetaminophen Tab [Tylenol] 650 mg PO Q6H #30 tab 11/12/22 Docusate [Colace] 100 mg PO BID #20 capsule 11/12/22 Ibuprofen [Motrin] 600 mg PO Q6HR PRN #40 tab 11/12/22 oxyCODONE HCL [OxyIR] 5 mg PO Q6H PRN 3 Days #10 tab 11/12/22 Amoxic-Pot Clav 875-125Mg 1 tab PO Q12HR #20 tab 12/16/23 [Augmentin 875-125] predniSONE 50 mg PO DAILY #5 tab 12/16/23 Allergies Allergy/AdvReac Type Severity Reaction Status Date / Time codeine Allergy Unknown Verified 12/16/23 12:57 omeprazole [From Prilosec] Allergy Rash/Hives Verified 12/16/23 12:57 Review of Systems ROS Statement: Those systems with pertinent positive or pertinent negative responses have been documented in the HPI. ROS Other: All systems not noted in ROS Statement are negative. Past Medical History Past Medical History: Asthma, Blood Disorder, Chest Pain / Angina, COPD, CVA/TIA, Fibromyalgia, GERD/Reflux, Hyperlipidemia, Hypertension, Musculoskeletal Disorder, Osteoarthritis (OA), Sleep Apnea/CPAP/BIPAP Additional Past Medical History / Comment(s): Migraines, irregular heart beat - skips beats, hx TIA X3, last 10 yrs ago, seasonal allergies, hx anemia took iron supplements, EMPHYSEMA, polycystic ovaries, chronic back pain, vertigo, hx cellulitis, DDD, DJD, CPAP use. History of Any Multi-Drug Resistant Organisms: None Reported Past Surgical History: Section, Cholecystectomy, Joint Replacement, Orthopedic Surgery Additional Past Surgical History / Comment(s): Section X5, right knee arthroscopy, right knee meniscus repair, left knee tendon/ligament repair, cervical fusion, left shoulder replacement. Past Anesthesia/Blood Transfusion Reactions: No Reported Reaction Additional Past Anesthesia/Blood Transfusion Reaction / Comment(s): Never received blood transfusion. Vertigo. Past Psychological History: Bipolar, Depression Smoking Status: Current every day smoker Past Alcohol Use History: Occasional Past Drug Use History: Marijuana - Past Family History Mother Family Medical History: Rheumatoid Arthritis (RA) Additional Family Medical History / Comment(s): Alcoholic- has since . Father Family Medical History: Cancer Additional Family Medical History / Comment(s): Alcoholic. General Exam Limitations: no limitations General appearance: alert, in no apparent distress Head exam: Present: atraumatic, normocephalic, normal inspection Eye exam: Present: normal appearance, PERRL, EOMI. Absent: scleral icterus, conjunctival injection, periorbital swelling ENT exam: Present: normal exam, normal oropharynx, mucous membranes moist Neck exam: Present: normal inspection. Absent: tenderness, meningismus, lymphadenopathy Respiratory exam: Present: normal lung sounds bilaterally, wheezes. Absent: rales, rhonchi, stridor Cardiovascular Exam: Present: regular rate, normal rhythm, normal heart sounds. Absent: systolic murmur, diastolic murmur, rubs, gallop, clicks GI/Abdominal exam: Present: soft, normal bowel sounds. Absent: distended, tenderness, guarding, rebound, rigid Course Vital Signs 12/16/23 12:55 Temperature 98.5 F Pulse Rate 87 Respiratory 22 Rate Blood Pressure 144/83 O2 Sat by Pulse 97 Oximetry Medical Decision Making - Medical Decision Making Was pt. sent in by a medical professional or institution (, PA, MENTAL HEALTH PROGRAM SPECIALIST, urgent care, hospital, or long term...) When possible be specific @ -No Did you speak to anyone other than the patient for history (EMS, parent, family, police, friend...)? What history was obtained from this source @ -No Did you review nursing and triage notes (agree or disagree)? Why? @ -I reviewed and agree with nursing and triage notes Were old charts reviewed (outside hosp., previous admission, EMS record, old EKG, old radiological studies, urgent care reports/EKG's, long term records)? Report findings @ -No old charts were reviewed Differential Diagnosis (chest pain, altered mental status, abdominal pain women, abdominal pain men, vaginal bleeding, weakness, fever, dyspnea, syncope, headache, dizziness, GI bleed, back pain, seizure, CVA, palpatations, mental health, musculoskeletal)? @ -COVID 19, RSV, influenza, pneumonia, acute bronchitis, URI, this list is not all inclusive EKG interpreted by me (3pts min.). @ -None X-rays interpreted by me (1pt min.). @ -Chest x-ray 2 view shows no acute cardiopulmonary process, COPD changes CT interpreted by me (1pt min.). @ -None done U/S interpreted by me (1pt. min.). @ -None done What testing was considered but not performed or refused? (CT, X-rays, U/S, labs)? Why? @ -None What meds were considered but not given or refused? Why? @ -None Did you discuss the management of the patient with other professionals (professionals i.e. , PA, MENTAL HEALTH PROGRAM SPECIALIST, lab, RT, psych nurse, rn social services, library director, teacher, staff nuclear weapons officer, residential case manager)? Give summary @ -No Was smoking cessation discussed for >3mins.? @ -No Was critical care preformed (if so, how long)? @ -No Were there social determinants of health that impacted care today? How? (Homelessness, low income, unemployed, alcoholism, drug addiction, transportation, low edu. Level, literacy, decrease access to med. care, prison, rehab)? @ -No Was there de-escalation of care discussed even if they declined (Discuss DNR or withdrawal of care, Hospice)? DNR status @ -No What co-morbidities impacted this encounter? (DM, HTN, Smoking, COPD, CAD, Cancer, CVA, ARF, Chemo, Hep., AIDS, mental health diagnosis, sleep apnea, morbid obesity)? @ -None Was patient admitted / discharged? Hospital course, mention meds given and route, prescriptions, significant lab abnormalities, going to OR and other pertinent info. @ -Discharge patient presented for URI symptoms. Patient has mild COPD exacerbation, tracheobronchitis. Patient be discharged in stable condition. Undiagnosed new problem with uncertain prognosis? @ -No Drug Therapy requiring intensive monitoring for toxicity (Heparin, Nitro, Insulin, Cardizem)? @ -No Were any procedures done? @ -No Diagnosis/symptom? @ -Tracheobronchitis, COPD, chronic hip pain Acute, or Chronic, or Acute on Chronic? @ -Acute Uncomplicated (without systemic symptoms) or Complicated (systemic symptoms)? @ -Uncomplicated Side effects of treatment? @ -No Exacerbation, Progression, or Severe Exacerbation? @ -No Poses a threat to life or bodily function? How? (Chest pain, [place], [place], pneumonia, PE, COPD, DKA, ARF, appy, cholecystitis, CVA, Diverticulitis, Homicidal, Suicidal, threat to staff... and all critical care pts) @ -No - Lab Data Lab Results 12/16/23 Range/Units 13:13 Influenza Type A (PCR) Not Detected (Not Detectd) Influenza Type B (PCR) Not Detected (Not Detectd) RSV (PCR) Not Detected (Not Detectd) SARS-CoV-2 (PCR) Not Detected (Not Detectd) Disposition Clinical Impression: Tracheobronchitis, COPD (chronic obstructive pulmonary disease), Chronic hip pain Disposition: HOME SELF-CARE Condition: Stable Instructions (If sedation given, give patient instructions): Upper Respiratory Infection (ED) Additional Instructions: Please return to the Emergency Department if symptoms worsen or any other concerns. Prescriptions: Amoxic-Pot Clav 875-125Mg [Augmentin 875-125] 1 tab PO Q12HR #20 tab predniSONE 50 mg PO DAILY #5 tab Is patient prescribed a controlled substance at d/c from ED?: No Referrals: Mj Moreira DO [Primary Care Provider] - 1-2 days Time of Disposition: 14:12
[2023-12-16 14:47] LABS: Basophils % (A) 0 %; Eosinophils # (A) 0.1 k/uL (0-0.7); Eosinophils % (A) 2 %; HCT 42.9 % (34.0-46.0); HGB 14.1 gm/dL (11.4-16.0); Lymphocytes # (A) 2.3 k/uL (1.0-4.8); Lymphocytes % (A) 30 %; MCH 31.5 pg (25.0-35.0); MCHC 32.8 g/dL (31.0-37.0); MCV 96.1 fL (80.0-100.0); Mean Platelet Volume 8.1; Monocytes # (A) 0.3 k/uL (0-1.0); Monocytes % (A) 4 %; Neutrophils # (A) 4.6 k/uL (1.3-7.7); Neutrophils % (A) 61 %; Platelet Count 253 k/uL (150-450); RBC 4.46 m/uL (3.80-5.40); RDW 13.6 % (11.5-15.5); WBC 7.5 k/uL (3.8-10.6)
[2023-12-16 14:52] LABS: INR 0.9 (<1.2); Partial Thromboplastin Time 22.7 sec (22.0-30.0)
[2023-12-16 14:55] LABS: ALT 30 U/L (4-34); AST 31 U/L (14-36); African American GFR (CKD) 83 (>60 ml/min/1.73 sqM); Albumin 4.6 g/dL (3.5-5.0); Alkaline Phosphatase 83 U/L (38-126); Anion Gap 11 mmol/L; Blood Urea Nitrogen 17 mg/dL (7-17); Carbon Dioxide 22 mmol/L (22-30); Chloride 108 mmol/L (98-107); Glucose 108 mg/dL (74-99); Magnesium 1.4 mg/dL (1.6-2.3); Non-African American GFR(CKD) 72 (>60 ml/min/1.73 sqM); Potassium 4.1 mmol/L (3.5-5.1); Sodium 141 mmol/L (137-145); Total Bilirubin 0.5 mg/dL (0.2-1.3); Total Protein 7.4 g/dL (6.3-8.2)
[2023-12-16 15:50] VITALS: BP 159/90; PULSE 85; RESP 18; TEMP 98.8
== END 2023-12-16 15:50 | disposition home or self-care (01) ==
LOC: EC 12:45
CPT/HCPCS: 36415; 71046; 80053; 83735; 84484; 85025; 85379; 85610; 85730; 87636; 96372; 99283